=== PATIENT | female | born 1970 | race Caucasian/White ===

== ENCOUNTER 2020-08-22 08:21 | Outpatient (REF) | payer OTHER, SELFPAY ==
--- NOTE | 2020-08-22 | MM_ITS ---
EXAMINATION: MM SCREENING DIGITAL BREAST TOMOSYNTHESIS, BILATERAL CLINICAL INFORMATION: Screening. Asymptomatic. Prior benign right ultrasound-guided breast biopsy 2016. Family history breast cancer. The lifetime risk of breast cancer based on the Tyrer-Cuzick Model is 9%. COMPARISON: Mammography: 08/17/2019, 08/16/2018; MRI breasts 04/16/2019 TECHNIQUE: Digital breast tomosynthesis is performed in both the craniocaudal and mediolateral oblique views along with computer-aided detection (CAD). Synthesized 2D images are generated from the tomosynthesis. FINDINGS: There are scattered areas of fibroglandular density (ACR BI-RADS breast composition Category b). There are no significant masses, abnormal calcifications, or other abnormalities. There is a biopsy clip marker again noted anterior to mid 3:00 right breast. The axilla and skin contours are unremarkable. No significant changes. IMPRESSION: No mammographic evidence of malignancy. ASSESSMENT: BI-RADS 1: Negative RECOMMENDATION: Routine annual mammography screening. This patient's information was entered into a reminder system with a target due date for their next mammogram.
== END 2020-08-22 08:22 | disposition home or self-care (01) ==
LOC: HO.MAMMO 08:21
PROVIDERS: PCP Internal Medicine Medical Oncology; Visit Provider Internal Medicine Medical Oncology
DX: Z12.31 Encounter for screening mammogram for malignant neoplasm of breast (principal)
CPT/HCPCS: 77063; 77067; 78014

== ENCOUNTER → 2020-10-07 16:04 | Outpatient (BNVA) | payer OTHER, SELFPAY | PROVIDERS: PCP Internal Medicine Medical Oncology; Visit Provider Surgery | DX: Z76.89 Persons encountering health services in other specified circumstances (principal) ==

== ENCOUNTER → 2021-03-31 15:18 | Outpatient (BNVA) | payer OTHER, SELFPAY | PROVIDERS: PCP Internal Medicine Medical Oncology; Visit Provider Surgery ==

== ENCOUNTER 2021-08-24 07:30 | Outpatient (REF) | payer OTHER, SELFPAY ==
--- NOTE | ~2021-08-24 | MM_ITS ---
EXAMINATION: MM SCREENING DIGITAL BREAST TOMOSYNTHESIS, BILATERAL CLINICAL INFORMATION: Screening. Asymptomatic. Family history breast cancer, mother. The lifetime risk of breast cancer based on the Tyrer-Cuzick Model is 22%. COMPARISON: Mammography: 08/22/2020, 08/17/2019, 08/16/2018 TECHNIQUE: Digital breast tomosynthesis is performed in both the craniocaudal and mediolateral oblique views along with computer-aided detection (CAD). Synthesized 2D images are generated from the tomosynthesis. Additional right MLO view is provided. FINDINGS: There are scattered areas of fibroglandular density (ACR BI-RADS breast composition Category b). There are no significant masses, abnormal calcifications, or other abnormalities. Parenchymal pattern is similar to prior exams. No developing density. There is a biopsy clip marker again noted medial right breast for the axilla and skin contours are unremarkable. MM/MM tomosynthesis screening BI IMPRESSION: No mammographic evidence of malignancy. ASSESSMENT: BI-RADS 1: Negative RECOMMENDATION: Routine annual mammography screening. This patient's information was entered into a reminder system with a target due date for their next mammogram.
== END 2021-08-24 07:31 | disposition home or self-care (01) ==
LOC: HO.MAMMO 07:30
PROVIDERS: Absent Provider Obstetrics & Gynecology Gynecology; PCP Internal Medicine Medical Oncology; Visit Provider Surgery
DX: Z12.31 Encounter for screening mammogram for malignant neoplasm of breast (principal)
CPT/HCPCS: 77063; 77067

== ENCOUNTER → 2021-09-29 15:36 | Outpatient (BNVA) | payer OTHER, SELFPAY | PROVIDERS: PCP Internal Medicine Medical Oncology; Visit Provider Surgery ==

== ENCOUNTER → 2021-10-19 09:19 | Outpatient (BNVA) | payer OTHER, SELFPAY | PROVIDERS: PCP Internal Medicine Medical Oncology; Visit Provider Surgery ==

== ENCOUNTER → 2021-10-26 08:41 | Outpatient (BNVA) | payer OTHER, SELFPAY | PROVIDERS: Visit Provider Surgery ==

== ENCOUNTER → 2021-12-15 15:47 | Outpatient (BNVA) | payer OTHER, SELFPAY | PROVIDERS: Visit Provider Surgery ==

== ENCOUNTER 2022-02-15 08:05 | Outpatient (REF) | payer OTHER, SELFPAY ==
--- NOTE | ~2022-02-15 | MR_ITS ---
EXAMINATION: MR BREAST WITHOUT AND WITH CONTRAST, BILATERAL CLINICAL INFORMATION: 51-year-old for high-risk screening family history mother COMPARISON: MRI 04/16/2019 and correlation to mammogram of 08/24/2021 TECHNIQUE: Imaging was performed with a dedicated breast coil. Prior to the administration of contrast, bilateral axial T1 and bilateral axial T2 weighted sequences were obtained. After the uneventful administration of?7.5 mL of Gadavist, dynamic contrast-enhanced VIBRANT series through the breasts in the axial plane were performed. Subtracted images were performed and reviewed. A delayed sagittal sequence through both breasts was acquired. Additionally, CAD post-processing, including maximum intensity projections, 3-D reconstructions and kinetic analysis, were performed an independent workstation and reviewed by the interpreting radiologist is a portion of this exam. FINDINGS: The patient's fibroglandular tissue demonstrates minimal background enhancement. LEFT BREAST: No suspicious masslike or non-masslike enhancement. No abnormal skin thickening or nipple retraction. No abnormal architectural distortion. Review of the T2 weighted images demonstrates no fibrocystic changes or dilated ducts. Review of kinetic images reveals no additional findings. RIGHT BREAST: No suspicious masslike or non-masslike enhancement. No abnormal skin thickening or nipple retraction. No abnormal architectural distortion. Review of the T2 weighted images demonstrates no fibrocystic changes or dilated ducts. Review of kinetic images reveals no additional findings. There is no suspicious internal mammary chain or axillary adenopathy. Limited views of the chest and abdomen are unremarkable. MR/MR breast BI wo/w con IMPRESSION: No MR specific evidence of malignancy. ASSESSMENT: LEFT BREAST: BI-RADS 1-Negative RIGHT BREAST: BI-RADS 1-Negative RECOMMENDATIONS: Routine mammographic imaging as per most recent study and MRI as per high-risk protocol.
== END 2022-02-15 08:06 | disposition home or self-care (01) ==
LOC: HO.MRI 08:05
PROVIDERS: PCP Internal Medicine Medical Oncology; Visit Provider Surgery
DX: Z80.3 Family history of malignant neoplasm of breast (principal)
CPT/HCPCS: 77049; A9585

== ENCOUNTER 2022-09-13 08:19 | Outpatient (REF) | payer OTHER, SELFPAY ==
--- NOTE | ~2022-09-13 | MM_ITS ---
EXAMINATION: MM SCREENING DIGITAL BREAST TOMOSYNTHESIS, BILATERAL CLINICAL INFORMATION: Screening. Asymptomatic. Family history breast cancer, mother. The lifetime risk of breast cancer based on the Tyrer-Cuzick Model is 9%. COMPARISON: Mammography: 08/24/2021, 08/22/2020, 08/17/2019; bilateral breast MR 02/15/2022. TECHNIQUE: Digital breast tomosynthesis is performed in both the craniocaudal and mediolateral oblique views along with computer-aided detection (CAD). Synthesized 2D images are generated from the tomosynthesis. FINDINGS: There are scattered areas of fibroglandular density (ACR BI-RADS breast composition Category b). There are no significant masses, abnormal calcifications, or other abnormalities. Parenchymal pattern is similar to prior studies. There is no developing density or architectural abnormality. There is a biopsy clip marker anterior upper inner right breast again noted. The axilla and skin contours are unremarkable. No significant changes. MM/MM tomosynthesis screening BI IMPRESSION: No mammographic evidence of malignancy. ASSESSMENT: BI-RADS 1: Negative RECOMMENDATION: Routine annual mammography screening. This patient's information was entered into a reminder system with a target due date for their next mammogram.
== END 2022-09-13 08:20 | disposition home or self-care (01) ==
LOC: HO.MAMMO 08:19
PROVIDERS: PCP Internal Medicine Medical Oncology; Visit Provider Obstetrics & Gynecology Gynecology
DX: Z12.31 Encounter for screening mammogram for malignant neoplasm of breast (principal)
CPT/HCPCS: 77063; 77067

== ENCOUNTER → 2023-09-19 08:30 | Outpatient (BNV) | payer OTHER, SELFPAY | PROVIDERS: PCP Internal Medicine Medical Oncology; Visit Provider Radiology Diagnostic Radiology | DX: Z12.31 Encounter for screening mammogram for malignant neoplasm of breast (principal) | CPT/HCPCS: 77063; 77067 ==

== ENCOUNTER 2023-09-19 08:39 | Outpatient (REF) | payer OTHER, SELFPAY ==
--- NOTE | ~2023-09-19 | MM_ITS ---
EXAMINATION: MM SCREENING DIGITAL BREAST TOMOSYNTHESIS, BILATERAL CLINICAL INFORMATION: Screening. Asymptomatic. COMPARISON: Mammography: This study is compared with prior exams dating back to 2018. TECHNIQUE: Digital breast tomosynthesis is performed in both the craniocaudal and mediolateral oblique views along with computer-aided detection (CAD). Synthesized 2D images are generated from the tomosynthesis. FINDINGS: There are scattered areas of fibroglandular density (ACR BI-RADS breast composition Category b). There are no significant masses, abnormal calcifications, or other abnormalities. There is a tissue marker present in the upper inner quadrant of the right breast from prior benign percutaneous biopsy. MM/MM tomosynthesis screening BI IMPRESSION: No mammographic evidence of malignancy. ASSESSMENT: BI-RADS BI-RADS 2 - Benign Findings RECOMMENDATION: Routine annual mammography screening. 1 year F/U This examination should not preclude the clinical evaluation of a suspicious palpable abnormality. This patient's information was entered into a reminder system with a target due date for their next mammogram.
== END 2023-09-19 08:40 | disposition home or self-care (01) ==
LOC: HO.MAMMO 08:39
PROVIDERS: PCP Internal Medicine Medical Oncology; Visit Provider Internal Medicine Medical Oncology
DX: Z12.31 Encounter for screening mammogram for malignant neoplasm of breast (principal)
CPT/HCPCS: 77063; 77067

== ENCOUNTER 2023-09-27 15:28 | Outpatient (AMB) | payer OTHER, SELFPAY ==
--- NOTE | 2023-09-27 15:38 | A.OFFVIS_ITS ---
Intake Vital Signs 09/27/23 15:46 Height 5 ft 3 in Weight 169 lb BMI 29.9 BP 124/66 Intake Visit Reasons: Yearly Breast Exam Intake Note: Patient is seen in office for yearly breast exam. 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 Jones, determined to be high risk for breast cancer due to her strong family history for both breast and ovarian cancer. Her mother developed ovarian cancer in her early 50s and 2 maternal aunts also developed ovarian cancer in the 50s and 60s. The 2 aunts also developed breast cancer, also in their 50s and 60s. Her mother and 2 aunts have subsequently . The patient's sister was found to have pancreatic cancer at the age of 46 and subsequently underwent surgery. She is alive and well currently. Patient's father developed a kidney cancer at the age of 49. Patient is 3 para 1, with 2 miscarriages. Her son was born when she was 18 years old and she reports breast-feeding. Menarche was at the age of 12. Her last menstrual period was May,, and she reports her menstrual cycles are irregular. She denies Ashkenazi Protestant heritage, tobacco use but does report radiation exposure from [place]. She grew up in [place] and lived near the nuclear fall out of [place], as were her family members with cancer. The genetic testing revealed no clinically significant genetic mutations and 1 variant of unknown significance. Her breast cancer risk score was low at 5.4%, well below the 20% threshold. She denies any new breast symptoms. Her last mammogram was performed on 09/19/2023 however radiology report is not available at the time of this dictation. [facility] Medical History Family history of ovarian cancer Family history of breast cancer Surgical History History of right oophorectomy History of appendectomy Family History Maternal Aunt Breast cancer Ovarian cancer Maternal Aunt Breast cancer Sister Pancreatic cancer Father Cancer of kidney Mother Ovarian cancer Social History Alcohol intake: current Alcohol intake frequency: holidays/special occasions only Alcohol type: wine Review of Systems Const All systems reviewed & are unremarkable except as noted in HPI and below Denies chills, Denies fatigue, Denies poor appetite and Denies weakness Resp Denies chest congestion, Denies cough and Denies hemoptysis Denies nipple discharge Skin/Breast Denies breast swelling, Denies breast skin changes, Denies breast pain, Denies breast mass and Denies nipple discharge Neuro Denies weakness Endo Denies fatigue Adolph/Lymph Denies lymphadenopathy Physical Exam Vital Signs: Last Vital Signs BP 124/66 09/27/23 15:46 BMI result Body Mass Index 29.9 Const General: healthy appearing and Physically active Nutritional Appearance: well nourished Orientation/consciousness: patient oriented x3 Limitations: no limitations Neck Neck: Yes no lymphadenopathy Lymphatic: no lymphadenopathy noted Chest Other: Left breast: No skin change, no nipple retraction, no nipple discharge, no palpable mass, no enlarged lymph nodes. Right breast: No skin change, no nipple retraction, no nipple discharge, no palpable mass, no enlarged lymph nodes Resp Effort & Inspection: normal respiratory effort, no audible wheezes, no cough and no respiratory distress Skin General skin exam: no rashes or lesions noted Neuro General: patient oriented x3 Extrem General: Yes no clubbing, cyanosis or edema Psych Appearance: grossly normal Affect: normal affect Thought process: Normal thought process present Assessment & Plan Assessment & Plan (1) Family history of breast cancer: Code(s): Z80.3 - Family history of malignant neoplasm of breast Plan: Patient returns today for a follow-up breast examination. Previous genetic testing revealed no clinically significant genetic mutations and 1 variant of unknown significance identified. Her breast cancer risk score was calculated below the 20% threshold. Examination today revealed no suspicious findings in either breast. I recommended continue yearly breast examination and yearly screening mammograms. Will hold off on further breast MRIs. She expressed understanding and agrees with the plan. Will await for reading on her most recent mammogram dated 09/19/2023. Coding Level of Care Code Est Pt Level 3 (56857) Diagnoses Family history of breast cancer Z80.3
[2023-09-27 15:46] VITALS: BP 124/66; BMI 29.9
== END 2023-09-27 16:05 | disposition home or self-care (01) ==
PROVIDERS: PCP Internal Medicine Medical Oncology; Visit Provider Surgery
DX: Z80.3 Family history of malignant neoplasm of breast (principal)
CPT/HCPCS: 99213

== ENCOUNTER → 2023-09-27 15:28 | Outpatient (BNVA) | payer OTHER, SELFPAY | PROVIDERS: PCP Internal Medicine Medical Oncology; Visit Provider Surgery ==

== ENCOUNTER 2024-01-04 16:49 | Outpatient (REF) | payer OTHER, SELFPAY ==
--- NOTE | ~2024-01-04 | XR_ITS ---
EXAMINATION: XR BILATERAL HIPS WITH AP PELVIS CLINICAL INFORMATION: Pain. COMPARISON: None available. TECHNIQUE: AP view of the pelvis and single views of each hip were obtained. FINDINGS: No fracture. Hip joint spaces are maintained. Alignment is anatomic. Sacroiliac joints and pubic symphysis are normal. No abnormal soft tissue calcifications. There are small pelvic phleboliths. XR/XR hips ANDREA min 3V IMPRESSION: Normal pelvis and hips.
== END 2024-01-04 16:50 | disposition home or self-care (01) ==
LOC: HO.XRAY 16:49
PROVIDERS: PCP Internal Medicine Medical Oncology; Visit Provider Internal Medicine Medical Oncology
DX: M25.552 Pain in left hip (principal); M25.551 Pain in right hip
CPT/HCPCS: 73522

== ENCOUNTER 2024-01-13 16:48 | Outpatient (REF) | payer OTHER, SELFPAY ==
--- NOTE | ~2024-01-13 | XR_ITS ---
EXAMINATION: XR HAND/WRIST, RIGHT CLINICAL INFORMATION: Pain in a patient with carpal tunnel syndrome COMPARISON: None TECHNIQUE: PA, lateral, and oblique views of the right hand and wrist. FINDINGS: The bones and soft tissues are normal. No fracture. Alignment is anatomic. Joint spaces are maintained. No erosions or soft tissue calcifications. XR/XR hand wrist RT IMPRESSION: Normal radiographs of the hand and wrist.
--- NOTE | ~2024-01-13 | XR_ITS ---
EXAMINATION: XR HAND/WRIST, LEFT CLINICAL INFORMATION: Pain in the patient with carpal tunnel syndrome COMPARISON: None TECHNIQUE: PA, lateral, and oblique views of the left hand and wrist. FINDINGS: The bones and soft tissues are normal. No fracture. Alignment is anatomic. Joint spaces are maintained. No erosions or soft tissue calcifications. XR/XR hand wrist LT IMPRESSION: Normal radiographs of the hand and wrist.
== END 2024-01-13 16:49 | disposition home or self-care (01) ==
LOC: HO.XRAY 16:48
PROVIDERS: PCP Internal Medicine Medical Oncology; Visit Provider Internal Medicine Medical Oncology
DX: G56.03 Carpal tunnel syndrome, bilateral upper limbs (principal)
CPT/HCPCS: 73110; 73130

== ENCOUNTER 2024-02-02 08:07 | Outpatient (REF) | payer OTHER, SELFPAY ==
--- NOTE | 2024-02-02 08:10 | EMG_ITS ---
Bilateral median and ulnar motor and sensory studies were performed. Bilateral radial sensory studies were performed. Median and lateral antecubital brachial sensory studies were performed and paraspinal muscles were tested with a needle. IMPRESSION: 1. [id number] bilateral median neuropathy across carpal tunnel. 2. Mild bilateral ulnar neuropathy across cubital tunnel. MD SCOTT Mcfadden/LOLA / [phone]
== END 2024-02-02 08:08 | disposition home or self-care (01) ==
LOC: HO.NEURO 08:07
PROVIDERS: PCP Internal Medicine Medical Oncology; Visit Provider Internal Medicine Medical Oncology
DX: G56.03 Carpal tunnel syndrome, bilateral upper limbs (principal)
CPT/HCPCS: 95886; 95913

== ENCOUNTER 2024-02-13 08:48 | Outpatient (AMB) | payer OTHER, SELFPAY ==
--- NOTE | 2024-02-13 08:54 | A.OFFVIS_ITS ---
Intake Intake Visit Reasons: New Pt - Bilateral Hip Pain Intake Note: Pt is a 53 year old femal who presents to the office today for a new patient visit for bilateral hip pain. Pt states her right hip is worse than the left. She states this started in October 2023. Pt denies any known injury. Pt states she is unable to sleep on her right side. She states she has shooting pain that goes down her leg. Allergies No Known Allergies Allergy (Verified 02/13/24 08:55) HPI New Pt - Bilateral Hip Pain HPI Details 53-year-old female who presents to the [facility] today for evaluation of bilateral hip pain since October 2023. She states she has pain in her bilateral hips which is worse on her right hip. She rates the pain as 9 on the scale of 0- 10. She describes her pain as a shooting pain which radiates down to her leg. Her pain is aggravated at night which makes her unable to sleep on her right side. She also experiences muscle soreness at night. She denies any numbness or tingling. She has not had any previous injury. She has a history of right hip pain in 2014 and had attended physical therapy sessions for the same. 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 [facility] Medical History Family history of ovarian cancer Family history of breast cancer Surgical History History of right oophorectomy History of appendectomy Family History Maternal Aunt Breast cancer Ovarian cancer Maternal Aunt Breast cancer Sister Pancreatic cancer Father Cancer of kidney Mother Ovarian cancer Social History (Updated 02/13/24 @ 08:55 by Kely Cheng CMA) Alcohol intake: current Alcohol intake frequency: holidays/special occasions only Alcohol type: wine Patient Tobacco Use Status: Never used Tobacco Review of Systems Const All systems reviewed & are unremarkable except as noted in HPI and below Physical Exam Const General: cooperative, healthy appearing, comfortable, no acute distress, well developed and alert Orientation/consciousness: patient oriented x3 HEENT Head: Yes normal to inspection, Yes normocephalic and Yes atraumatic Eyes General: appearance normal, both eyes and all related structures Resp Effort & Inspection: normal respiratory effort and able to speak in complete sentences Cardio Rate: regular rate Peripheral pulses: Peripheral pulses 2+ throughout GI Palpation (GI): Soft to palpation Skin Lesions: no lesions Rashes: no rashes Neuro General: patient oriented x3 Extrem Other: Bilateral hip: Normal to inspection. No pain with ROM of the hip. Pain along the greater trochanter. No pain with hip flexion or abduction. Negative tenderness along the SI joint, Negative SLR. NVI. Results Reviewed Results Reviewed: xrays of the right hip obtained on 01/04/24 show mild acetabular sclerosis Assessment & Plan Assessment & Plan (1) Trochanteric bursitis of right hip: Code(s): M70.61 - Trochanteric bursitis, right hip Plan We discussed options which include PT, NSAIDs and injections. The patient will defer on the injection today and proceed with PT and NSAIDs. If symptoms persist, the patient will contact me for an injection, otherwise, PRN. Orders: Orders PT Evaluation and Treatment 02/13/24 M70.61 - Trochanteric bursitis, right hip Medications: New ibuprofen 800 mg PO Q8H PRN 90 tabs 3RF pain 30 days S52.209D - Unspecified fracture of shaft of unspecified ulna, subsequent encounter for closed fracture with routine healing diclofenac sodium 1% apply 4grams to affected area four times a day as needed 4 grams topical QID 100 grams 6RF 30 days Patient Instructions: Scribed for Sheila Walters PA-C, by Fransisco Colón medical field representative, on 02/13/2024 at 9:00 AM EST. I, Sheila Walters PA-C, have personally reviewed and agree with the information entered by the scribe. Coding Level of Care Code New Pt Level 3 (69335) Diagnoses Trochanteric bursitis of right hip M70.61
== END 2024-02-13 10:11 | disposition home or self-care (01) ==
PROVIDERS: PCP Internal Medicine Medical Oncology; Visit Provider Physician Assistant
DX: M70.61 Trochanteric bursitis, right hip (principal)
CPT/HCPCS: 99203

== ENCOUNTER → 2024-02-13 08:48 | Outpatient (BNVA) | payer OTHER, SELFPAY | PROVIDERS: PCP Internal Medicine Medical Oncology; Visit Provider Physician Assistant ==

== ENCOUNTER 2024-02-22 13:49 | Outpatient (AMB) | payer OTHER, SELFPAY ==
--- NOTE | 2024-02-22 14:09 | A.OFFVIS_ITS ---
Intake Intake Visit Reasons: NProb-B/L hand CTS pain Intake Note: Clair 53 yr old right hand dominant female presents today for a new problem visit for bilateral hand CTS. States her numbness is worse. Symptoms started about about a year ago and has not improved. Patient expresses that the hands are equal to pain/numbness. She has tried ibuprofen with no help. EMG done. Allergies No Known Allergies Allergy (Verified 02/22/24 14:10) HPI NProb-B/L hand CTS pain HPI Details Clair is a 53 year old right hand dominant woman who presents for a NCS of her bilateral hand numbness. She complains of numbness in all fingers of her hands bilaterally. Symptoms intermittent, but daily, worse at night. She says right now she has a slight tingling in her small fingers, more so the left small finger and she has not sure about the right small finger She is hesitant to discuss surgery today. 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 [facility], [facility]1983 Medical History Family history of ovarian cancer Family history of breast cancer Surgical History History of right oophorectomy History of appendectomy Family History Maternal Aunt Breast cancer Ovarian cancer Maternal Aunt Breast cancer Sister Pancreatic cancer Father Cancer of kidney Mother Ovarian cancer Social History (Updated 02/13/24 @ 08:55 by Kely Cheng CMA) Alcohol intake: current Alcohol intake frequency: holidays/special occasions only Alcohol type: wine Patient Tobacco Use Status: Never used Tobacco Review of Systems Const All systems reviewed & are unremarkable except as noted in HPI and below Physical Exam Const General: cooperative, healthy appearing and no acute distress Orientation/consciousness: patient oriented x3 HEENT Head: Yes normocephalic and Yes atraumatic Eyes EOM: EOMs intact bilaterally Resp Effort & Inspection: normal respiratory effort and able to speak in complete sentences Cardio Jugular venous distension: no JVD Skin General skin exam: turgor normal Rashes: no rashes Neuro General: patient oriented x3 Extrem Other: Evaluation of Bilateral Upper Extremity: The patient is alert, oriented, and in no acute distress Neuro: Median, Ulnar, Radial nerves motor and sensory intact and sensation is normal to the tips of all digits today in clinic No thenar or intrinsic wasting Good APB muscle belly firing and good finger cross Vascular: Cap refill brisk ROM: She can make a fist and extend all her digits No locking or catching Radiographs: 3 views of the bilateral hands & wrists from 01/13/24 were reviewed by me today in clinic. They show no fractures, dislocations, or appreciable arthritic signs bilaterally Nerve conduction study: IMPRESSION: 1. Ujjz-ma-mcebjsyt bilateral median neuropathy across carpal tunnel. 2. Mild bilateral ulnar neuropathy across cubital tunnel. Rigo Cruz MD 02/02/2024 Psych Appearance: grossly normal Affect: normal affect Attitude: cooperative Assessment & Plan Assessment & Plan (1) Carpal tunnel syndrome of right wrist: Code(s): G56.01 - Carpal tunnel syndrome, right upper limb (2) Carpal tunnel syndrome of left wrist: Code(s): G56.02 - Carpal tunnel syndrome, left upper limb (3) Cubital tunnel syndrome on right: Code(s): G56.21 - Lesion of ulnar nerve, right upper limb (4) Cubital tunnel syndrome on left: Code(s): G56.22 - Lesion of ulnar nerve, left upper limb Plan Assessment & Plan: 1. Left Carpal tunnel syndrome, mild-moderate Symptoms intermittent, but daily, worse at night 2. Left Cubital tunnel syndrome, mild Symptoms intermittent, but daily, worse at night I educated her about this condition I discussed operative and non-operative treatment options The patient would like to proceed with surgery, beginning with the left side The risks and benefits of operative treatment were discussed with the patient and the patient wishes to proceed with surgery. These risks include, but are not limited to risk of damage to blood vessels, nerves, tendons, infection, recurrence, incomplete relief of preoperative symptoms, persistent pain, possible need for further surgery and the risks associated with regional blocks and anesthesia. The plan is to take the patient to the operating room sometime in the next few weeks for the following procedures: 1. Left Cubital tunnel release vs transposition, under general 2. Left Carpal tunnel release, under general All of the preoperative paperwork including the consent was reviewed today. All the patient's questions were answered. The patient understands that they will be contacted by our rn surgery icu soon to schedule this procedure She denies Diabetes, blood thinners, asthma, heart, lung, kidney issues 3.Right Carpal tunnel syndrome, mild-moderate Symptoms intermittent, but daily, worse at night 4. Right Cubital tunnel syndrome, mild Symptoms intermittent, but daily, worse at night She will follow up to discuss treatment for this when her left side has recovered from surgery She will try and be mindful if her small finger does go numb daily on this side Scribed for Chrissy Bowser MD by Jonathan Rider medical chemist, on 02/22/24 at 2:15 PM, EST. Coding Level of Care Code New Pt Level 4 (15350) Diagnoses Carpal tunnel syndrome of right wrist G56.01 Carpal tunnel syndrome of left wrist G56.02 Cubital tunnel syndrome on right G56.21 Cubital tunnel syndrome on left G56.22
== END 2024-02-22 14:38 | disposition home or self-care (01) ==
PROVIDERS: PCP Internal Medicine Medical Oncology; Visit Provider Orthopaedic Surgery
DX: G56.03 Carpal tunnel syndrome, bilateral upper limbs (principal); G56.23 Lesion of ulnar nerve, bilateral upper limbs
CPT/HCPCS: 99204

== ENCOUNTER → 2024-02-22 13:49 | Outpatient (BNVA) | payer OTHER, SELFPAY | PROVIDERS: PCP Internal Medicine Medical Oncology; Visit Provider Orthopaedic Surgery ==

== ENCOUNTER 2024-02-27 09:34 | Emergency (ER) | payer OTHER, SELFPAY ==
--- NOTE | ~2024-02-27 | CT_ITS ---
EXAMINATION: CT HEAD WITHOUT CONTRAST CLINICAL INFORMATION: Left facial numbness. COMPARISON: None available. TECHNIQUE: Contiguous axial imaging was performed from the skull base to vertex without intravenous administration of contrast. This CT examination was performed using dose optimization techniques as appropriate, variously including the following: *Automated exposure control *Adjustment of mA and/or kV according to patient size (this includes techniques or standardized protocols for targeted exams where dose is matched to indication/reason for exam; i.e. extremities or head) *Use of iterative reconstruction technique DLP: 577 mGy-cm FINDINGS: There is no intracranial hemorrhage. There is no evidence of acute/subacute cerebral or cerebellar infarction. There is no midline shift, mass effect, or extra-axial fluid collection. The ventricles are normal in size. The orbits are symmetric and within normal limits. Visualized mastoid air cells are clear. Visualized paranasal sinuses are well aerated. CT/CT head/brain wo IV con IMPRESSION: No acute intracranial pathology.
[2024-02-27 09:38] VITALS: BP 169/96; PULSE 79; RESP 18; TEMP 36.8; O2SAT 98; BMI 29.7
[2024-02-27 10:00] LABS: MANUAL DIFF FLAG NO
[2024-02-27 10:02] LABS: Basophils Absolute Auto 0.1 X10*3/uL (0.0-0.2); Basophils Percent Auto 0.9 % (0-2); Eosinophils Absolute Auto 0.3 X10*3/uL (0.0-0.4); Eosinophils Percent Auto 5.5 % (0-4); Hematocrit 40.5 % (37.0-47.0); Hemoglobin 13.7 g/dl (12.0-16.0); Imm Gran Abs Auto 0.01 X10*3/uL (0.00-0.03); Imm Gran Pct Auto 0.2 % (0.0-0.4); Lymphocytes Absolute Auto 1.6 X10*3/uL (1.2-4.9); Lymphocytes Percent Auto 29.2 % (20-40); Mean Corpuscular HGB Conc 33.8 g/dl (31.0-35.0); Mean Corpuscular Hemoglobin 30.7 pg (27.0-33.0); Mean Corpuscular Volume 90.8 fL (80.0-98.0); Mean Platelet Volume 10.3 fL (9.4-12.3); Monocytes Absolute Auto 0.4 X10*3/uL (0.1-1.2); Monocytes Percent Auto 7.7 % (2-11); Neutrophils Absolute Auto 3.1 x10*3/uL (2.0-8.3); Neutrophils Percent Auto 56.5 % (45-73); Platelet Count 291 X10*3/uL (160-400); Red Blood Count 4.46 X10*6/uL (4.20-5.50); Red Cell Distribution Width 13.6 % (11.0-16.0); White Blood Count 5.5 X10*3/uL (4.8-10.8)
[2024-02-27 10:18] LABS: Anion Gap 13 (12-20); Blood Urea Nitrogen 7 mg/dL (9-16); Calcium 9.7 mg/dL (8.4-10.2); Carbon Dioxide 26 mmol/L (22-29); Chloride 107 mmol/L (96-108); Creatinine Clr Calc Pharmacy 87.3; Estimated Glomerular Filt Rate > 60; Glucose Random 97 mg/dL (60-115); Potassium 4.8 mmol/L (3.3-5.1); Sodium 141 mmol/L (135-145)
--- NOTE | 2024-02-27 10:21 | ED_ITS ---
HPI - Neuro Symptoms/Deficit General Chief Complaint: Neuro Symptoms/Deficit Stated Complaint: L side facial numbness sent by Enzo Time Seen by Provider: 02/27/24 10:20 Source: patient Mode of arrival: ambulatory Limitations: no limitations History of Present Illness HPI Narrative: 53 yo female with history of bilateral carpal tunnel syndrome, HTN, HLD who presents to the ER from Dr. Umanzor's office for evaluation of left facial numbness that started 4 days ago. She states it came on gradually and involves the left maxillary area and extends toward the ear. She states it feels like when the dentist uses novocaine. It waxes and wanes but has been mostly constant for the last 4 days. No associated weakness, tingling, difficulty speaking or concentrating. No ear pain, no dental pain. She is a nonsmoker. Onset (ago): day(s) (4) Location: left face History of same: No Severity: mild Quality: numb Relieving factors: none Exacerbating factors: none Context: gradual onset On Anticoagulants: No Associated symptoms: denies other symptoms Treatments Prior to Arrival: none Related Data Home Medications ?Medication ?Instructions ?Recorded ?Confirmed valacyclovir 1 gram tablet 4,000 mg PO ONCE 02/13/24 Previous Rx's ?Medication ?Instructions ?Recorded diclofenac sodium 1 % topical gel 4 g topical QID 30 days #100 grams 02/13/24 ibuprofen 800 mg tablet 800 mg PO Q8H PRN pain 30 days #90 02/13/24 tabs Allergies Allergy/AdvReac Type Severity Reaction Status Date / Time No Known Allergies Allergy Verified 02/27/24 09:39 Review of Systems 2 Review of Systems: Yes all other systems are reviewed and are negative [facility] Past Medical History Medical History Family history of ovarian cancer Family history of breast cancer Surgical History History of right oophorectomy History of appendectomy Family History Family History Maternal Aunt Breast cancer Ovarian cancer Maternal Aunt Breast cancer Sister Pancreatic cancer Father Cancer of kidney Mother Ovarian cancer Social History Social History (Updated 02/13/24 @ 08:55 by Kely Cheng CMA) Alcohol intake: current Alcohol intake frequency: holidays/special occasions only Alcohol type: wine Patient Tobacco Use Status: Never used Tobacco Advance Directives: No Advance Directives Information Provided: Yes Physical Exam 2 Vital Signs: Vital Signs: Last Vital Signs Temp 98.2 F 02/27/24 12:32 Pulse 74 02/27/24 12:32 Resp 16 02/27/24 12:32 BP 144/84 H 02/27/24 12:32 Pulse Ox 97 02/27/24 12:32 O2 Del Method Room Air 02/27/24 12:32 BMI result Body Mass Index 29.7 Appearance: Alert. Oriented X3. No acute distress. Head: normocephalic, atraumatic. Eyes: Pupils equal, round and reactive to light. EOMI. No nystagmus ENT: Pharynx normal. No tonsillar swelling or exudate. Neck: Normal inspection. Neck supple. CVS: Normal heart rate and rhythm. Pulses normal. Respiratory: No respiratory distress. Breath sounds normal. Abdomen: Soft and nontender. +BS x4 Skin: Skin warm and dry. Normal skin color. Normal skin turgor. No rashes. Extremities: No lower extremity edema. No joint swelling. Neuro/psych: Oriented X 3. No motor deficit. Subjective sensory deficit to left face/maxillary area feels different than the right face. CN II-XII intact. Normal speech and cognition. Steady gait. Equal heel to cabrera bilaterally and finger to nose bilaterally. Medical Decision Making Medical Decision Making MDM Narrative: 53 yo female presenting with 4 days of left facial numbness. she reports sensation is different in her left maxillary area. Neuro exam is normal, nonfocal. NIH 0. Lab workup unremarkable. CT head performed and was normal She reports wax/waning numbness, overall improved. case d/w Dr. Torres - added ESR. will plan to start on ASA 81. no need for emergent MRI today. will discharge home and have her follow up with her PCP. stable for d/c home. Dr. Umanzor aware Differential Diagnosis Differential Diagnoses: The differential diagnosis associated with the presentation includes CVA, vasculitis, dissection, electrolyte abnormality,MS, panic attack, Addison's palsy, neuropathy, trigeminal neuralgia Admission/Observation Consideration of admission/observation: Escalation of care including admission/observation considered Consult Healthcare Provider Management of the patient was discussed with: Clam Bed Worker PCP Dr. Umanzor - tigertexted and made him aware of results and plan to d/c home Lab Data MDM Lab Attestation statement: I reviewed the patient's lab results. 02/27/24 09:55 02/27/24 09:55 Labs: Lab Results 02/27/24 Range/Units 09:55 WBC 5.5 (4.8-10.8) X10*3/uL RBC 4.46 (4.20-5.50) X10*6/uL Hgb 13.7 (12.0-16.0) g/dl Hct 40.5 (37.0-47.0) % MCV 90.8 (80.0-98.0) fL MCH 30.7 (27.0-33.0) pg MCHC 33.8 (31.0-35.0) g/dl RDW 13.6 (11.0-16.0) % Plt Count 291 (160-400) X10*3/uL MPV 10.3 (9.4-12.3) fL Immature Gran % (Auto) 0.2 (0.0-0.4) % Neut % (Auto) 56.5 (45-73) % Lymph % (Auto) 29.2 (20-40) % [place] % (Auto) 7.7 (2-11) % Eos % (Auto) 5.5 H (0-4) % Baso % (Auto) 0.9 (0-2) % Lymph # (Auto) 1.6 (1.2-4.9) X10*3/uL [place] # (Auto) 0.4 (0.1-1.2) X10*3/uL Eos # (Auto) 0.3 (0.0-0.4) X10*3/uL Baso # (Auto) 0.1 (0.0-0.2) X10*3/uL Abs Immat Gran (auto) 0.01 (0.00-0.03) X10*3/uL Absolute Neuts (auto) 3.1 (2.0-8.3) x10*3/uL Absolute Nucleated RBC 0.000 (0.0-0.012) X10*3/uL Nucleated RBC % (auto) 0.0 (0.0-0.2) /100WBC Sodium 141 (135-145) mmol/L Potassium 4.8 (3.3-5.1) mmol/L Chloride 107 (96-108) mmol/L Carbon Dioxide 26 (22-29) mmol/L Anion Gap 13 (12-20) BUN 7 L (9-16) mg/dL Creatinine 0.71 (0.5-1.4) mg/dL Estim Creat Clear Calc 87.3 Estimated GFR > 60 Random Glucose 97 (60-115) mg/dL Calcium 9.7 (8.4-10.2) mg/dL Magnesium 2.2 (1.6-2.6) mg/dL Independent Interpretation I performed an independent interpretation of an: CT Scan Interpretation: no edema or bleed, agree w/ radiology read Radiology Impression Discussion of test interpretation with radiology: I have reviewed the radiologist's reading. Radiologist Impression: EXAMINATION: CT HEAD WITHOUT CONTRAST CLINICAL INFORMATION: Left facial numbness. COMPARISON: None available. TECHNIQUE: Contiguous axial imaging was performed from the skull base to vertex without intravenous administration of contrast. This CT examination was performed using dose optimization techniques as appropriate, variously including the following: *Automated exposure control *Adjustment of mA and/or kV according to patient size (this includes techniques or standardized protocols for targeted exams where dose is matched to indication/reason for exam; i.e. extremities or head) *Use of iterative reconstruction technique DLP: 577 mGy-cm FINDINGS: There is no intracranial hemorrhage. There is no evidence of acute/subacute cerebral or cerebellar infarction. There is no midline shift, mass effect, or extra-axial fluid collection. The ventricles are normal in size. The orbits are symmetric and within normal limits. Visualized mastoid air cells are clear. Visualized paranasal sinuses are well aerated. CT/CT head/brain wo IV con IMPRESSION: No acute intracranial pathology. External Record Review External record reviewed: Outpatient record, Prior outpatient labs and Prior outpatient radiology Tests considered The following testing was considered but not selected: CTA head/neck considered but low clinical suspicion for LVO or dissection Prescription Management I considered prescription management with: Other (aspirin) Chronic Conditions Patient?s care impacted by: Hypertension NIH Stroke Scale Internal: Initial- Upon Arrival Level of Consciousness: Alert Level of Consciousness Questions: Answers both questions correctly Level of Consciousness Commands: Performs both tasks correctly Best Gaze: Normal Visual: No visual loss Facial Palsy: Normal Motor Arm (Right): No drift Motor Arm (Left): No drift Motor Leg (Right): No drift Motor Leg (Left): No drift Limb Ataxia: Absent Sensory: Normal Best Language: No aphasia Dysarthia: Normal Extinction and Inattention: No abnormality Score: 0 Critical Care Time Critical Care Time Critical Care Time: No Discharge Plan Discharge Clinical Impression: Left facial numbness Patient Disposition: Home, Self-Care Instructions: Paresthesia (ED) Additional Instructions: your CT scan today was normal Recommend starting a baby aspirin. Follow-up with your doctor for further evaluation and treatment If you develop new or worsening symptoms call 911 or come back to the ER for further evaluation. Prescriptions: No Action valacyclovir 1 gram tablet 4,000 mg PO ONCE diclofenac sodium 1 % gel 4 g topical QID 30 Days Qty: 100 6RF Rx Instructions: apply 4grams to affected area four times a day as needed ibuprofen 800 mg tablet 800 mg PO Q8H PRN (Reason: pain) 30 Days Qty: 90 3RF Print Language: Hebrew
[2024-02-27 12:32] VITALS: BP 144/84; PULSE 74; RESP 16; TEMP 36.8; O2SAT 97
[2024-02-27 13:04] LABS: Magnesium 2.2 mg/dL (1.6-2.6)
--- NOTE | 2024-02-27 13:25 | PC.NURSE ---
CT scan contacted re: reading- per arnold will send message to radiologist
[2024-02-27 14:26] LABS: Erythrocyte Sedimentation Rate 6 MM/HR (0-20)
[2024-02-27 15:57] VITALS: BP 140/80; PULSE 77; RESP 16; TEMP 36.8; O2SAT 98
== END 2024-02-27 13:30 | disposition home or self-care (01) ==
PROVIDERS: Physician Assistant; Emergency Provider Emergency Medicine; PCP Internal Medicine Medical Oncology
DX: R20.0 Anesthesia of skin (principal); I10 Essential (primary) hypertension
CPT/HCPCS: 36415; 70450; 80048; 83735; 85025; 85652; 99283; 99284

== ENCOUNTER 2024-03-27 15:25 | Outpatient (AMB) | payer OTHER, SELFPAY ==
--- NOTE | 2024-03-27 15:26 | A.OFFVIS_ITS ---
Vital Signs 03/27/24 15:33 Height 5 ft 3 in Weight 167 lb BMI 29.6 BP 155/84 H Blood Pressure Location Lt brachial Position Sitting Pulse 89 Intake Visit Reasons: 6m Breast Exam Intake Note: Patient is seen in office for 6 month follow up visit, breast exam. Pt c/o: denies any concerns regarding the breast Food Service Agent Required: No Turning Sander Tender: Turning Sander Tender Present Accompanied by: Self / Same As Patient Allergies pollen extracts Allergy (Mild, Verified 03/27/24 15:48) Nasal congestion Medication List - Last Reconciled 03/30/24 by Bong Mayo MD diclofenac sodium 1% 4 grams topical QID 30 days ibuprofen 800 mg PO Q8H PRN 30 days valacyclovir 4,000 mg PO ONCE HPI Comments Details: 53-year-old female patient, former patient of Dr. Eaton and hemanth Mendes etermined to be high risk for breast cancer due to her strong family history for both breast and ovarian cancer. Her mother developed ovarian cancer in her early 50s and 2 maternal aunts also developed ovarian cancer in the 50s and 60s. The 2 aunts also developed breast cancer, also in their 50s and 60s. Her mother and 2 aunts have subsequently . The patient's sister was found to have pancreatic cancer at the age of 46 and subsequently underwent surgery. She is alive and well currently. Patient's father developed a kidney cancer at the age of 49. Patient is 3 para 1, with 2 miscarriages. Her son was born when she was 18 years old and she reports breast-feeding. Menarche was at the age of 12. Her last menstrual period was May,, and she reports her menstrual cycles are irregular. She denies Ashkenazi Hoahaoism heritage, tobacco use but does report radiation exposure from [place]. She grew up in [facility] and lived near the nuclear fall out of [place], as were her family members with cancer. The genetic testing revealed no clinically significant genetic mutations and 1 variant of unknown significance. Her breast cancer risk score was low at 5.4%, well below the 20% threshold. She denies any new breast symptoms. Her last mammogram was performed on 09/19/2023 revealed no mammographic evidence of malignancy (BI-RADS 2). One year follow-up is re commended. [facility] Medical History Family history of ovarian cancer Family history of breast cancer Surgical History History of right oophorectomy History of appendectomy Family History Maternal Aunt Breast cancer Ovarian cancer Maternal Aunt Breast cancer Sister Pancreatic cancer Father Cancer of kidney Mother Ovarian cancer Social History Alcohol intake: current Alcohol intake frequency: holidays/special occasions only Alcohol type: wine Patient Tobacco Use Status: Never used Tobacco Review of Systems Const All systems reviewed & are unremarkable except as noted in HPI and below Denies chills, Denies fatigue, Denies poor appetite and Denies weakness Resp Denies chest congestion, Denies cough and Denies hemoptysis Denies nipple discharge Skin/Breast Denies breast swelling, Denies breast skin changes, Denies breast pain, Denies breast mass and Denies nipple discharge Neuro Denies weakness Endo Denies fatigue Adolph/Lymph Denies lymphadenopathy Physical Exam Vital Signs: Last Vital Signs Pulse 89 03/27/24 15:33 BP 155/84 H 03/27/24 15:33 BMI result Body Mass Index 29.6 Const General: healthy appearing and Physically active Nutritional Appearance: well nourished Orientation/consciousness: patient oriented x3 Limitations: no limitations Neck Neck: Yes no lymphadenopathy Lymphatic: no lymphadenopathy noted Chest Other: Left breast: No skin change, no nipple retraction, no nipple discharge, no palpable mass, no enlarged lymph nodes. Right breast: No skin change, no nipple retraction, no nipple discharge, no palpable mass, no enlarged lymph nodes Resp Effort & Inspection: normal respiratory effort, no audible wheezes, no cough and no respiratory distress Skin General skin exam: no rashes or lesions noted Neuro General: patient oriented x3 Extrem General: Yes no clubbing, cyanosis or edema Psych Appearance: grossly normal Affect: normal affect Thought process: Normal thought process present Assessment & Plan Assessment & Plan (1) Family history of breast cancer: Code(s): Z80.3 - Family history of malignant neoplasm of breast Category: Medical Plan: Patient returns today for a follow-up breast examination. Previous genetic testing revealed no clinically significant genetic mutations and 1 variant of unknown significance identified. Her breast cancer risk score was calculated below the 20% threshold. Examination today revealed no suspicious findings in either breast. I recommended continue yearly breast examination and yearly screening mammograms. Will hold off on further breast MRIs. She expressed understanding and agrees with the plan. She will be due for yearly mammogram in September 2024. Coding Level of Care Code Est Pt Level 3 (26104) Diagnoses Family history of breast cancer Z80.3
[2024-03-27 15:33] VITALS: BP 155/84; PULSE 89; BMI 29.6
== END 2024-03-27 15:51 | disposition home or self-care (01) ==
PROVIDERS: PCP Internal Medicine Medical Oncology; Visit Provider Surgery
DX: Z80.3 Family history of malignant neoplasm of breast (principal)
CPT/HCPCS: 99213

== ENCOUNTER → 2024-03-27 15:25 | Outpatient (BNVA) | payer OTHER, SELFPAY | PROVIDERS: PCP Internal Medicine Medical Oncology; Visit Provider Surgery ==

== ENCOUNTER 2024-03-27 17:00 | Outpatient (RCR) | payer OTHER, SELFPAY ==
--- NOTE | 2024-03-05 13:21 | MHC.PT.EP ---
[facility] Office [place] [facility] [place] [facility] [address] Esme Caraballo [address] [phone] F: [phone] F: [phone] F: [phone] F: [phone] Physical Therapy Plan of Care Date of Evaluation: 03/05/24 Date of Surgery: Diagnosis: TROCHANTERIC BURSITIS RIGHT HIP Assessment: 53 YO FEMALE REF TO PT FOR Rt TROCHANTERIC BURSITIS W ONSET OF PROGRESSIVE SXS IN 09/2023. SHE NOTES SHE ALSO HAD A BOUT OF PLANTAR FASCIITIS W (+) CALCANEAL SPUR IN 09/2023. 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 HER Rt HIP SXS ARE WORSE AT NIGHT, SHE HAS (+) LUMBOPELVIC ASYM, WEAKNESS IN GLUTES / ABDOM, (-) RADICULAR SXS, (+) SI Jt DYSFUNCTION, LIMITED FLEXIB IN HIP ROTATORS, AND Rt HIP PAIN W OCCAS GROIN SORENESS. SHE IS A GOOD CANDIDATE FOR SKILED PT-> SHE IS MOTIVATED FOR PT AND WOULD BENEFIT FROM DEV OF A HEP FOR SELF-SX MGMT , SOFT TISSUE EASING, IMPROVED LUMBOPELVIC STABILIZATION, AND INCR ISAC TO PROLONGED WORK SITE POSTURES. Frequency and Duration: The patient will be seen 2 x WK x 5 WKS Short Term Goals: *DECR Rt HIP PAIN TO 2-3/10 *INITIATE HEP TO IMPROVE LUMBOPELVIC SYMM/ EASE SI Jt ASYM *IMPROVE HIP FLEXIB ANDREA *WFL FUNCTIONAL SQUAT Felt Puller Goals: *Pt DEMON IMPROVED BODY MECH W SIMUL WORK SITE TASKS *Pt WILL IMPROVE LUMBOPELVIC/ Rt LE HIP STRENGTH TO AT LEAST 5-/5 *Pt INDEP W PROGRESSIVE HEP AND SELF-SX MGMT TECHN *Pt PERF WORK SITE TASKS/ REG ADLs / FITNESS WALKING , W IMPROVED LEFI SCORE (AT EVAL 70/80 ) Treatment Plan: Modalities to reduce pain, spasms and effusion. Manual therapy to restore motion and function. Therapeutic exercise to improve strength and flexibility. Neuromuscular re-education for posture and balance. Therapeutic activities to return to functional activities of daily living. Electronically signed by: REBEKAH JIMMY,PT Please sign and return to therapist. Thank you for your referral.
--- NOTE | 2024-07-13 12:24 | MHC.PT.DC ---
[facility] [place] Office [place] Office [place] Office [address] Esme Caraballo [address] [phone] F: [phone] F: [phone] F: [phone] F: [phone] Physical Therapy Discharge Report Diagnosis: TROCHANTERIC BURSITIS RIGHT HIP Date of Surgery: Date of Evaluation: 03/05/24 Date of Discharge: 07/13/24 Treatments to Date: 6 Cancellations to Date: 1 No Shows to Date: 2 Discharge Status: Improved Function Independent with HEP Patient Elected to Stop Discharge Summary: THE Pt WAS BENEFITTING FROM PT, SHE MET HER SHORT TERM GOALS AND MOST LTGs- A FORMAL REASSESSMENT WAS NOT PERF THE Pt DID NOT ATTEND LAST FEW TREATMENTS. SHE HAS A THOROUGH HEP FOR SYMPTOM MANAGEMENT. Electronically signed by: REBEKAH MARQUEZ,PT Please sign and return to therapist. Thank you for your referral.
== END 2024-07-13 12:26 | disposition home or self-care (01) ==
LOC: HO.PT 17:00
PROVIDERS: PCP Internal Medicine Medical Oncology; Visit Provider Physician Assistant
DX: M70.61 Trochanteric bursitis, right hip (principal)
CPT/HCPCS: 97014; 97110; 97140; 97162; 97530

== ENCOUNTER 2024-09-21 07:10 | Day surgery (SDC) | payer OTHER, SELFPAY ==
[2024-09-19 10:47] VITALS: BMI 29.8
[2024-09-21 07:22] VITALS: BMI 29.2
[2024-09-21 07:29] VITALS: BP 143/93; PULSE 75; RESP 15; TEMP 36.7; O2SAT 97
--- NOTE | 2024-09-21 07:40 | P.CONAN_ITS ---
Documented by User: Xochitl Padgett NP 09/20/24 10:12 HPI - Anesthesia Eval Consult details Narrative: 54yo F for Colonoscopy PMFSH Active Problems Active Problems: All Active Problems Cubital tunnel syndrome on left (Acute) Cubital tunnel syndrome on right (Acute) Carpal tunnel syndrome of left wrist (Acute) Carpal tunnel syndrome of right wrist (Acute) Trochanteric bursitis of right hip (Acute) Family history of breast cancer (Acute) Past Medical History Medical History (Updated 09/21/24 @ 07:51 by Gwen Patrick RN) Fatty liver HTN (hypertension) Hepatic cyst Uterine fibroid Hyperlipidemia Family History Family History Maternal Aunt Breast cancer Ovarian cancer Maternal Aunt Breast cancer Sister Pancreatic cancer Father Cancer of kidney Mother Ovarian cancer Surgical History Surgical History H/O colonoscopy History of right oophorectomy History of appendectomy Social History Social History (Updated 09/19/24 @ 10:46 by Diann Hall RN) Household Members: Spouse Alcohol intake: current Alcohol intake frequency: holidays/special occasions only Alcohol type: wine Patient Tobacco Use Status: Former Tobacco user Tobacco use type: Cigarette Use of substances other than those prescribed or required for medical reasons: No Are you DNR?: No Advance Directives: No Advance Directives Information Provided: Yes Recently lost weight without trying: No Meds Allergies Allergy/AdvReac Type Severity Reaction Status Date / Time pollen extracts Allergy Mild Nasal Verified 09/21/24 07:44 congestion Home Medications ?Medication ?Instructions ?Recorded ?Confirmed ?Last Taken ?Type valacyclovir 1 gram tablet 4,000 mg PO DAILY PRN Outbreak 02/13/24 09/21/24 Unknown History lisinopril 10 mg tablet 10 mg PO DAILY 09/21/24 09/21/24 Unknown History Exam Height,Weight and Vital Signs: Height 5 ft 3 in Weight 76.204 kg Assessment and Plan Assessment Anesthesia Assessment: Chart Reviewed Documented by User: Gwen Atkinson DO 09/21/24 07:53 [facility] Past Medical History Medical History (Updated 09/21/24 @ 07:51 by Gwen Patrick, RN) Fatty liver HTN (hypertension) Hepatic cyst Uterine fibroid Hyperlipidemia Family History Family History Maternal Aunt Breast cancer Ovarian cancer Maternal Aunt Breast cancer Sister Pancreatic cancer Father Cancer of kidney Mother Ovarian cancer Family history of problems with anesthesia: No Surgical History Surgical History H/O colonoscopy History of right oophorectomy History of appendectomy History of Problems with Anesthesia: No Social History Social History (Updated 09/19/24 @ 10:46 by Diann Hall RN) Household Members: Spouse Alcohol intake: current Alcohol intake frequency: holidays/special occasions only Alcohol type: wine Patient Tobacco Use Status: Former Tobacco user Tobacco use type: Cigarette Use of substances other than those prescribed or required for medical reasons: No Are you DNR?: No Advance Directives: No Advance Directives Information Provided: Yes Recently lost weight without trying: No Meds Allergies Allergy/AdvReac Type Severity Reaction Status Date / Time pollen extracts Allergy Mild Nasal Verified 09/21/24 07:44 congestion Home Medications ?Medication ?Instructions ?Recorded ?Confirmed ?Last Taken ?Type valacyclovir 1 gram tablet 4,000 mg PO DAILY PRN Outbreak 02/13/24 09/21/24 Unknown History lisinopril 10 mg tablet 10 mg PO DAILY 09/21/24 09/21/24 Unknown History Exam Exam Date and Time: 09/21/24 0740 Height,Weight and Vital Signs: Height 5 ft 3 in Weight 76.204 kg Vital Signs Temperature 98.0 F 09/21/24 07:29 Pulse Rate 75 09/21/24 07:29 Respiratory Rate 15 09/21/24 07:29 Blood Pressure 143/93 H 09/21/24 07:29 Pulse Oximetry 97 09/21/24 07:29 Oxygen Delivery Method Room Air 09/21/24 07:29 Temperature 98.0 F 09/21/24 07:29 Pulse Rate 75 09/21/24 07:29 Respiratory Rate 15 11/08/24 07:29 Blood Pressure 143/93 H 09/21/24 07:29 Pulse Oximetry 97 09/21/24 07:29 Oxygen Delivery Method Room Air 09/21/24 07:29 Airway Mallampati Class: II TM Dist: >3cm Neck ROM: Full Loose/Missing/Broken Teeth: No (patient denies any loose or broken teeth) Heart: S1S2 Lungs: CTAB Assessment and Plan Assessment Anesthesia Assessment: Anesthesia Plan Discussed and Chart Reviewed Final Anesthetic Review Family History of Problems with Anesthesia: No History of Problems with Anesthesia: No NPO: Yes ASA Class: II Final Preanesthetic Review: No Changes in Pt Med Stat, Meds/Allgs Chart Reviewed, Consent Obtained/Reviewed and Anes Risks/Benef Reviewed Patient Risk: Low Procedure Risk: Low Anesthetic Plan Anesthetic Plan: MAC: and Agree w/ Assess. and Plan Disposition: Standard PACU
[2024-09-21] MEDS: Lactated Ringers 1,000 ML 100 ML IVCONT (07:44)
--- NOTE | 2024-09-21 08:08 | MHC.SHP ---
Pre-Procedural Eval Section A - 24 Hr Update-Section A only Date of Service: 09/21/24 Section B - Complete if H&P > 30 days Chief Complaint: Encounter for screening for malignant neoplasm of Details of Present Illness: see H&P no changes Relevant Family History (Specify if Yes): No Relevant Social History: None Present Medications: see Short Stay Collaborative assessment Medical History: No relevant PMH History of Previous Operations: No relevant previous surgery Allergies: Allergies Allergy/AdvReac Type Severity Reaction Status Date / Time pollen extracts Allergy Mild Nasal Verified 09/21/24 07:44 congestion Review of Systems Sugical H&P ROS: Negative: Constitution, Cardiovascular, Respiratory, Neurological, Psychiatric, Hem-Onc, Allergic/Immunologic, Gastrointestinal, Genitourinary, Musculoskeletal, Integumentary, Endocrine and Eyes/Ears/Nose/Throat Exam Surgical H&P Exam: Normal: HEENT, Normal: Heart, Normal: Lungs, Normal: Extremities, Normal: Abdomen, Normal: Skin and Normal: Neurological Plan Diagnosis/Plan: Unchanged I have reviewed the history and physical and performed a pertinent physical examination on my patient. No changes have occurred unless specified. Time Spent With Patient Time: Total time managing care of this patient today ____ minutes.
[2024-09-21 08:36] VITALS: BP 83/47; PULSE 73; RESP 16; TEMP 36.4; O2SAT 95
[2024-09-21 08:51] VITALS: BP 105/68; PULSE 73; RESP 16; TEMP 36.1; O2SAT 97
--- NOTE | 2024-09-24 07:40 | PM.OP ---
Brief Operative Note Date of Service: 09/21/24 Pre-op diagnosis: screening Post-op diagnosis: same Procedure: colonoscopy Surgeon: Abiodun Villafana MD Anesthesia: MAC Was an Facility Maintenance Mechanic used for this Procedure?: No Estimated blood loss (mL): 2 Pathology: other Condition: stable Disposition: PACU
--- NOTE | 2024-09-24 08:01 | OP_ITS ---
DATE OF SERVICE: 09/21/2024 SURGEON: Abiodun Villafana MD INDICATIONS: Colon cancer screening. PREOPERATIVE DIAGNOSIS: POSTOPERATIVE DIAGNOSIS: PROCEDURE PERFORMED: Colonoscopy to the terminal ileum with biopsy. ESTIMATED BLOOD LOSS: COMPLICATIONS: ANESTHESIA: ASSISTANTS: SPECIMENS: MEDICATIONS: Monitored anesthesia care. DESCRIPTION OF PROCEDURE: A history and physical performed. The risks and benefits of the procedure were explained to the patient and informed consent was obtained. The patient was placed in the left lateral decubitus position. A digital rectal exam was performed and was found to be normal. The Olympus pediatric video colonoscope was introduced into the rectum and advanced to the cecum. The cecum was identified by transillumination, palpation, and identification of the ileocecal valve. Examination was performed. The scope was removed. She tolerated the procedure well and was taken to recovery in stable condition. FINDINGS: The terminal ileum was examined and appeared normal. The visualized colonic mucosa was normal. The quality of the prep was good. There was a small less than 5 mm sessile polyp at the ileocecal valve, which was removed using a biopsy forceps. No other polyps were identified. Retroflexed examination was normal. IMPRESSION: Colon polyp. RECOMMENDATION: Follow up biopsy results. MD SAMI Medellin/LOLA / [id number]
== END 2024-09-21 09:33 | disposition home or self-care (01) ==
PROVIDERS: PCP Internal Medicine Medical Oncology; Visit Provider Internal Medicine Gastroenterology
PROC: 0DJD8ZZ Inspection of Lower Intestinal Tract, Via Natural or Artificial Opening Endoscopic (ICD-10-PCS; CPT 45378; principal; 2024-09-21 08:20)
DX: Z12.11 Encounter for screening for malignant neoplasm of colon (principal); Z86.0101 Personal history of adenomatous and serrated colon polyps; Z83.719 Family history of colon polyps, unspecified; K63.5 Polyp of colon; Z80.0 Family history of malignant neoplasm of digestive organs; E78.5 Hyperlipidemia, unspecified; D25.9 Leiomyoma of uterus, unspecified; Z86.19 Personal history of other infectious and parasitic diseases; Z79.899 Other long term (current) drug therapy; Z98.890 Other specified postprocedural states; Z87.891 Personal history of nicotine dependence
CPT/HCPCS: 45380; 88305; J2003; J2250; J2704

== ENCOUNTER → 2024-09-27 08:00 | Outpatient (BNV) | payer OTHER, SELFPAY | PROVIDERS: PCP Internal Medicine Medical Oncology; Visit Provider Internal Medicine | DX: Z12.31 Encounter for screening mammogram for malignant neoplasm of breast (principal) | CPT/HCPCS: 77063; 77067 ==

== ENCOUNTER 2024-09-27 08:04 | Outpatient (REF) | payer OTHER, SELFPAY ==
--- NOTE | ~2024-09-27 | MM_ITS ---
EXAMINATION: MM SCREENING DIGITAL BREAST TOMOSYNTHESIS, BILATERAL CLINICAL INFORMATION: Screening. Asymptomatic. COMPARISON: Mammography: Comparison is made with available priors TECHNIQUE: Digital breast mammography with tomosynthesis is performed in both the craniocaudal and mediolateral oblique views along with computer-aided detection (CAD). FINDINGS: There are scattered areas of fibroglandular density (ACR BI-RADS breast composition Category b). Right marker clip. There are no significant masses, abnormal calcifications, or other abnormalities. MM/MM tomosynthesis screening BI IMPRESSION: No mammographic evidence of malignancy. ASSESSMENT: BI-RADS BI-RADS 2 - Benign Findings RECOMMENDATION: Routine annual mammography screening. 1 year F/U This examination should not preclude the clinical evaluation of a suspicious palpable abnormality. This patient's information was entered into a reminder system with a target due date for their next mammogram. Electronically signed by: Roxanne Valdovinos DO 10/05/2024 09:14 AM [facility]
== END 2024-09-27 08:05 | disposition home or self-care (01) ==
LOC: HO.MAMMO 08:04
PROVIDERS: PCP Internal Medicine Medical Oncology; Visit Provider Internal Medicine Medical Oncology
DX: Z12.31 Encounter for screening mammogram for malignant neoplasm of breast (principal)
CPT/HCPCS: 77063; 77067

== ENCOUNTER 2024-10-02 15:24 | Outpatient (AMB) | payer OTHER, SELFPAY ==
--- NOTE | 2024-10-02 15:24 | MHC.OFFVIS ---
Vital Signs 10/02/24 15:31 Height 5 ft 3 in Weight 168 lb BMI 29.8 Pulse 72 Intake Visit Reasons: 6m Breast Exam Intake Note: Patient is seen in office for 6 month follow up visit, breast exam. Pt c/o: denies any concerns at the time of visit Peanut Vendor Required: No Product Inspection Coordinator: Product Inspection Coordinator Present Accompanied by: Self / Same As Patient Allergies pollen extracts Allergy (Mild, Verified 10/02/24 15:25) Nasal congestion HPI Comments Details: 54-year-old female patient, former patient of Dr. Eaton and Dr. Jones, determined to be high risk for breast cancer due to her strong family history for both breast and ovarian cancer. Her mother developed ovarian cancer in her early 50s and 2 maternal aunts also developed ovarian cancer in the 50s and 60s. The 2 aunts also developed breast cancer, also in their 50s and 60s. Her mother and 2 aunts have subsequently . The patient's sister was found to have pancreatic cancer at the age of 46 and subsequently underwent surgery. She is alive and well currently. Patient's father developed a kidney cancer at the age of 49. Patient is 3 para 1, with 2 miscarriages. Her son was born when she was 18 years old and she reports breast-feeding. Menarche was at the age of 12. Her last menstrual period was May,, and she reports her menstrual cycles are irregular. She denies Ashkenazi Latter-Day heritage, tobacco use but does report radiation exposure from [place]. She grew up in [facility] and lived near the nuclear fall out of [place], as were her family members with cancer. The genetic testing revealed no clinically significant genetic mutations and 1 variant of unknown significance. Her breast cancer risk score was low at 5.4%, well below the 20% threshold. Her last mammogram was performed on 09/27/2024 although the study has not been read at the time of this dictation. Her previous mammogram performed on 09/19/2023 revealed no mammographic evidence of malignancy (BI-RADS 2). She denies any new breast symptoms at this time. [facility] Medical History Fatty liver HTN (hypertension) Hepatic cyst Uterine fibroid Hyperlipidemia Surgical History H/O colonoscopy History of right oophorectomy History of appendectomy Family History Maternal Aunt Breast cancer Ovarian cancer Maternal Aunt Breast cancer Sister Pancreatic cancer Father Cancer of kidney Mother Ovarian cancer Social History Household Members: Spouse Alcohol intake: current Alcohol intake frequency: holidays/special occasions only Alcohol type: wine Patient Tobacco Use Status: Former Tobacco user Tobacco use type: Cigarette Review of Systems Const All systems reviewed & are unremarkable except as noted in HPI and below Physical Exam Const General: healthy appearing and Physically active Nutritional Appearance: well nourished Orientation/consciousness: patient oriented x3 Limitations: no limitations Neck Neck: Yes no lymphadenopathy Lymphatic: no lymphadenopathy noted Chest Other: Left breast: No skin change, no nipple retraction, no nipple discharge, no palpable mass, no enlarged lymph nodes. Right breast: No skin change, no nipple retraction, no nipple discharge, no palpable mass, no enlarged lymph nodes Resp Effort & Inspection: normal respiratory effort, no audible wheezes, no cough and no respiratory distress Skin General skin exam: no rashes or lesions noted Neuro General: patient oriented x3 Extrem General: Yes no clubbing, cyanosis or edema Psych Appearance: grossly normal Affect: normal affect Thought process: Normal thought process present Assessment & Plan Assessment & Plan (1) Family history of breast cancer: Code(s): Z80.3 - Family history of malignant neoplasm of breast Category: Medical Plan: Patient returns today for a follow-up breast examination. Previous genetic testing revealed no clinically significant genetic mutations and 1 variant of unknown significance identified. Her breast cancer risk score was calculated below the 20% threshold. Examination today revealed no suspicious findings in either breast. Will hold off on further breast MRIs. She expressed understanding and agrees with the plan. We will await the results of her September 2024 mammogram and she will return in 6 months for follow-up examination. Coding Level of Care Code Est Pt Level 3 (92890) Diagnoses Family history of breast cancer Z80.3
[2024-10-02 15:31] VITALS: PULSE 72; BMI 29.8
== END 2024-10-02 15:58 | disposition home or self-care (01) ==
PROVIDERS: PCP Internal Medicine Medical Oncology; Visit Provider Surgery
DX: Z80.3 Family history of malignant neoplasm of breast (principal)
CPT/HCPCS: 99213

== ENCOUNTER → 2024-10-02 15:24 | Outpatient (BNVA) | payer OTHER, SELFPAY | PROVIDERS: PCP Internal Medicine Medical Oncology; Visit Provider Surgery ==

== ENCOUNTER 2025-04-18 15:27 | Outpatient (AMB) | payer OTHER, SELFPAY ==
--- NOTE | 2025-04-18 15:39 | MHC.OFFVIS ---
Vital Signs 04/18/25 15:53 Height 5 ft 3 in Weight 168 lb BMI 29.8 BP 124/75 Blood Pressure Location Lt brachial Position Sitting Pulse 80 Intake Visit Reasons: 6 mth breast exam Intake Note: Patient is seen in office for 6 month follow up visit, breast exam. Pt c/o: admits to left breast pain near the axilla, pain comes and goes for the past couple of months mm sched: 10/04/25 f/up Beth sched: 10/15/25 @ 3:30 pm [employer] Insurance Advisor Required: No Septic Pump Truck Driver: Septic Pump Truck Driver Present Accompanied by: Self / Same As Patient Allergies pollen extracts Allergy (Mild, Verified 04/18/25 15:55) Nasal congestion Medication List - Last Reconciled 04/18/25 by Bong Mayo MD lisinopril 10 mg PO DAILY valacyclovir 4,000 mg PO DAILY PRN HPI Comments Details: 54-year-old female patient, former patient of Dr. Eaton and Dr. Jones, determined to be high risk for breast cancer due to her strong family history for both breast and ovarian cancer. Her mother developed ovarian cancer in her early 50s and 2 maternal aunts also developed ovarian cancer in the 50s and 60s. The 2 aunts also developed breast cancer, also in their 50s and 60s. Her mother and 2 aunts have subsequently . The patient's sister was found to have pancreatic cancer at the age of 46 and subsequently underwent surgery. She is alive and well currently. Patient's father developed a kidney cancer at the age of 49. Patient is 3 para 1, with 2 miscarriages. Her son was born when she was 18 years old and she reports breast-feeding. Menarche was at the age of 12. Her last menstrual period was May,, and she reports her menstrual cycles are irregular. She denies Ashkenazi Anabaptist heritage, tobacco use but does report radiation exposure from [place]. She grew up in [facility] and lived near the nuclear fall out of [place], as were her family members with cancer. The genetic testing revealed no clinically significant genetic mutations and 1 variant of unknown significance. Her breast cancer risk score was low at 5.4%, well below the 20% threshold. Her last mammogram was performed on 09/27/2024 revealed no mammographic evidence of malignancy (BI-RADS 2). She is scheduled for a routine annual mammogram on 10/04/2025. She reports some pain in the left breast at the upper outer quadrant denies any history of trauma. [facility] Medical History Fatty liver HTN (hypertension) Hepatic cyst Uterine fibroid Hyperlipidemia Surgical History H/O colonoscopy History of right oophorectomy History of appendectomy Family History Maternal Aunt Breast cancer Ovarian cancer Maternal Aunt Breast cancer Sister Pancreatic cancer Father Cancer of kidney Mother Ovarian cancer Social History Household Members: Spouse Alcohol intake: current Alcohol intake frequency: holidays/special occasions only Alcohol type: wine Patient Tobacco Use Status: Former Tobacco user Tobacco use type: Cigarette Review of Systems Const All systems reviewed & are unremarkable except as noted in HPI and below Physical Exam Const General: healthy appearing and Physically active Nutritional Appearance: well nourished Orientation/consciousness: patient oriented x3 Limitations: no limitations Neck Neck: Yes no lymphadenopathy Lymphatic: no lymphadenopathy noted Chest Other: Left breast: No skin change, no nipple retraction, no nipple discharge, no palpable mass, no enlarged lymph nodes. Right breast: No skin change, no nipple retraction, no nipple discharge, no palpable mass, no enlarged lymph nodes Resp Effort & Inspection: normal respiratory effort, no audible wheezes, no cough and no respiratory distress Skin General skin exam: no rashes or lesions noted Neuro General: patient oriented x3 Extrem General: Yes no clubbing, cyanosis or edema Psych Appearance: grossly normal Affect: normal affect Thought process: Normal thought process present Assessment & Plan Assessment & Plan (1) Family history of breast cancer: Code(s): Z80.3 - Family history of malignant neoplasm of breast Category: Medical Plan: Patient returns today for a follow-up breast examination. Previous genetic testing revealed no clinically significant genetic mutations and 1 variant of unknown significance identified. Her breast cancer risk score was calculated below the 20% threshold. Examination today revealed no suspicious findings in either breast. Her most recent mammogram of 09/27/2024 revealed no mammographic evidence of malignancy (BI-RADS 2). She is scheduled for an annual mammogram on 10/04/2025. I recommended she return in approximately 6 months for routine breast examination. She is welcome to call sooner for any new concerns. Coding Level of Care Code Est Pt Level 3 (81589) Complex EM visit Add On G2211 Diagnoses Family history of breast cancer Z80.3
[2025-04-18 15:53] VITALS: BP 124/75; PULSE 80; BMI 29.8
--- OUTSIDE RECORDS SUMMARY | 2025-04-18 17:57 | XMS_ITS | Patient Health Record ---
Author Organization Carmine Giraldo III, MD Address [address] [place] [address] Care Team Providers Care Data Center Engineer Name Role Phone Carmine Giralod Primary Care Provider Allergies Allergen (clinical drug ingredient) Drug/Non Drug Allergy documented on EMR Reaction Allergy Type Onset Date Status No Known Drug Allergy Unknown Drug Allergy Active Results Component Value Reference Range Notes Pathology Reviewed date:09/27/2024 09:50:19 AM Interpretation: Performing Lab:[facility], [address] [place] [phone] Notes/Report: Name: Clair Quintero Age/Sex: 54/F [facility] 1970 [id number] [id number] Attend Dr: Abiodun Villafana MD Re09/21/24 Status : [facility] Location: [facility] Disch: SPEC : [id number] RECD : 09/21/24 STATUS: SEAN ERIC NUM: [id number] ROBERTO: 09/21/[address] [facility] [address]: Abiodun Villafana MD ENTERED: 09/21/24 SP TYPE: Surgical OTHR DR: Carmine Giraldo MD ORDERED: HE Stain/3, Gross Micro L4 Diagnosis Ileocecal valve, jasvir yp: Colonic mucosa with no specific change; no adenomatous dysplasia seen. Clinical History Pre-Op Dx: Screening Post-Op Dx: Colon polyp Microscopic Description Multiple microscopic sections reviewed. Material Received Polyp ileocecal valve Gross Description Received in formalin labeled ?polyp ileocecal valve? is a 0.35 cm avalos-pink rectangular tissue fragment, sub mitted in toto in a cassette labeled A. CEDS Copies To: Carmine Giraldo MD [address] [place] [address], [address] [place], [place] [id number] Abiodun Villafana MD [address] [place] [address] Signed (si gnature on file) Halie Bryant 09/26/24 0822 END OF REPORT SCREENING COLONOSCOPY (Not y et reviewed by provider) Interpretation:undefined Performing Lab: Notes/Report: undefined MM tomosynthesis screening B I Reviewed date:11/05/2024 06:15:47 AM Interpretation: Performing Lab: Notes/Report: [facility]'[address] [place] [address] Mammography Report Signed Patient: Clair Quintero MR#: [id number] 23 : 1970 Acct:[id number] Age/Sex: 54 / F ADM Date: 09/27/24 Loc: .MAMMO Attending Dr: Carmine Giraldo MD Ordering Physician: Carmine Giraldo MD Results: 2Benign Findings Date of Service: 09/27/24 Follow Up: 1 Year From [facility] Mammogram Procedure(s): MM tomosynthesis screening BI Accession Number(s): [id number] cc: Carmine Giraldo MD EXAMINATION: MM SCREENING DIGITAL BREAST TOMOSYNTHESIS, BILATERAL CLINICAL INFORMATION: Screening. Asymptomatic. COMPARISON: Mammography: Comparison is made with available priors TECHNIQUE: Digital breast mammography with tomosynthesis is performed in both the craniocaudal and mediolateral oblique views along with computer-aided detection (CAD). FINDINGS: There are scattered areas of fibroglandular density (ACR BI-RADS breast composition Category b). Right marker clip. There are no significant masses, abnormal calcifications, or other abnormalities. MM/MM tomosynthesis screening BI IMPRESSION: No mammographic evidence of malignancy. ASSESSMENT: BI-RADS BI-RADS 2 - Benign Findings RECOMMENDATION: Routine annual mammography screening. 1 year F/U This examination should not preclude the clinical evaluation of a suspicious palpable abnormality. This patient's information was entered into a reminder system with a target due date for their next mammogram. Electronically signed by: Roxanne Valdovinos DO 10/05/2024 09:14 AM EST RP Dictated By: Roxanne Valdovinos DO Signed By: <Electronically signed by Roxanne Valdovinos DO in OV> 10/05/24913 DD/ 1 TD/TT: 09/27/24825 Work Measurement Engineer: [facility] [address] [place] [address] Mammography Report Signed Patient: Alexandria Quintero MR#: [id number] 23 : 1970 Acct:[id number] Age/Sex: 54 / F ADM Date: 09/27/24 Loc: HO.MAMMO Attending Dr: Carmine Giraldo MD Ordering Physician: Carmine Giraldo MD Results: 2Benign Findings Date of Service: Follow Up: 1 Year From Orig ina Mammogram Procedure(s): MM juanito osynthesis screening BI Accession Number(s): [id number] cc: Carmine Giradlo MD EXAMINATION: MM SCREENING DIGITAL BREAST TOMOSYNTHESIS, BILATERAL CLINICAL INFORMATION: Screening. Asymptomatic. COMPARISON: Mammography: Compari son is made with available priors TECHNIQUE: Digital breast mammo graphy with tomosynthesis is performed in both the craniocaudal and med iolateral oblique views along with computer-aided detection (CAD). FINDINGS: There are scattered areas of fibroglandular density (ACR BI-RADS breast composition Category b). Right marker clip. There are no signifi cant masses, abnormal calcifications, or other abnormalities. M M/MM tomosynthesis screening BI IMPRESSION: No mammographic evid ence of malignancy. ASSESSMENT: BI-RADS BI-RADS 2 - Benign Findings RECOMMENDATION: Routine annual mammo graphy screening. 1 year F/U This examination herber uld not preclude the clinical evaluation of a suspicious palpable abnormality. This patient's infor mation was entered into a reminder system with a target due date for their next mammogram. Electronically lacie d by: Roxanne Valdovinos DO 10/05/2024 09:14 AM EST RP Dictated By: Roxanne Nguyen i, DO Signed By: <Viviana christalcoltenjia signed by Roxanne Valdovinos DO in OV> 10/05/24913 DD/ 1 TD/TT: 09/27/24825 Work Measurement Engineer: MAMMOGRAM DIGITAL BILATERAL SCREEN Reviewed date:01/08/2025 04:04:01 PM Interpretation:undefined Performing Lab: Notes/Report: undefined Reason For Referral No Information Medications Medication SIG (Take, Route, Fr equency, Duration) Notes Start Date End Date Status valACYclovir HCl 1 GM TAKE 2 TABLETS BY MOUTH TWICE DAILY FOR 1 DAY Oral Active Lisinopril 10 MG 1 tablet Orally Once a day 2023 Active Immunizations Vaccine Route Administration Date Status Comme nts Tdap Unknown 08/24/2020 Administered Social History Tobacco Use: Social History Observation [...] Problem Status W/U Status Risk Notes Problem 2595349 Former smoker (Z87.891) Active confirmed We made a plan to prevent relapsee in times of stress or illness. Problem 678354870 Overweight (E66.3) Active confirmed She wants very much to lose weight. We have discussed diet and nutrition today. We made a plan to lose weight at a rate of one half of a pound per week. Problem 671361275191970 Right hip pain (M25.551) Active confirmed The pain in her right hip is mild but persistent. He will continue on current therapy. If it worsens she will be referred to orthopedics. She is currently able to work full-time and pursue all of the activities of daily life. Problem 331724214 Mixed hyperlipidemia (E78.2) Active confirmed Her total cholesterol is 240 in the LDL is elevated at 174. We discussed using a statin medication to reduce her cardiovascular risk. We decided that she woulld try aggressively to lose weight over the next 3 months and then repeat the fasting lipid profile. She will consider a statin such as Lipitor at that time if the lipids have not reduced. Problem 37252592 Other secondary hypertension (I15.8) Active confirmed Her blood pressure is currently stable. I recommended a low cholesterol weight reduction low-sodium diet. Problem 52823376 Ovarian cyst (N83.20) Active confirmed She has one remaining ovary located on the Left side, which is known to have a cyst. The left ovary has been removed. She is up-to-date with gynecology and I have encouraged her to follow the directions of the outcomes manager at all times. Problem 77518750 Essential hypertension (I10) Active confirmed She was given a prescription for 10 mg daily of lisinopril. She will follow up in 21 days. She will continue to check her blood pressure at home. Problem Carpal tunnel syndrome (35319880) Carpal tunnel syndrome (G56.00) Active confirmed Problem 159130817 Right upper quadrant abdominal pain (R10.11) Active confirmed An actionable cause of this has not been found. She appears to be medically stable and will be carefully observed at this time. Problem 961736545 Abnormal mammogram (R92.8) Active confirmed Her last mammogram was August 2019 and was read as benign with a recommendation of annual studies. The radiologist calculated a Perri model lifetime risk of breast cancer of 17% Problem 50413274 Fibroids (D25.9) Active confirmed She continues to be under the care of her outcomes manager, Dr. Orlando. Problem 526143566 Radiation exposure (Z77.123) Active confirmed There is no sign of thyroid cancer at this time. Her thyroid function test) unremarkable. Problem Hepatic cyst (45352568) Hepatic cyst (K76.89) Active confirmed The cyst in her liver on an ultrasound, March 11, 2023 measured 1.5 x 1.4 x 1.4 cm. In September 2019. It measured 1.6 x 1.2 x 1.5. No intervention is required. Problem Carpal tunnel syndrome (26811007) Carpal tunnel syndrome, bilateral (G56.03) Active confirmed Problem 80157753 Abnormal liver function (R94.5) Active confirmed Her liver functions have returned to almost normal. This is likely due to obesity and fat storage. They will be followed carefully. Vital Signs Heart Rate 78 /min 01/08/2025 Temperature 98.1 degrees Fahrenheit 01/08/2025 Blood pressure diastolic 78 mm Hg 01/08/2025 Height 63 in 01/08/2025 Blood pressure systolic 125 mm Hg 01/08/2025 Weight 169 lbs 01/08/2025 BMI 29.93 kg/m2 01/08/2025 Encounters Encounter Location Date Provider Diagnosis Carmine Giraldo III, MD [address] [place] [address] [place] [address] 06/20/2024 Carmine Giraldo Essential hypertensi on I10 ; Mixed hyperlipidemia E78.2 ; Right hip pain M25.551 ; Fibroids D25.9 ; Overweight E66.3 and Radiation exposure Z77.123 Carmine Giraldo III, MD [address] [place] [address] [place] [address] 01/08/2025 Carmine Giraldo Mixed hyperlipidemia E78.2 ; Overweight E66.3 ; Fibroids D25.9 ; Ovarian cyst N83.20 ; Right hip pain M25.551 ; Radiation exposure Z77.123 ; Abnormal liver function R94.5 and Former smoker Z87.891 Carmine Giraldo III, MD [address] [place] [address] [place] [address] 05/24/2024 Carmine Giraldo III, MD [address] [place] [address] [place] [address] 05/31/2024 Carmine Giraldo Screening due Z13.9 Carmine Giraldo III, MD [address] [place] [address] [place] [address] 06/19/2024 Carmine Giraldo III, MD [address] [place] [address] [place] [address] 12/25/2024 Carmine Giraldo Mixed hyperlipidemia E78.2 ; Overweight E66.3 and Radiation exposure Z77.123 Assessments Encounter Date Diagnosis (ICD Code) Assessment Notes Treat ment Notes Treatment Clinical Notes 06/20/2024 Mixed hyperlipidemia (ICD-10 - E78.2) I [...] and consume a healthy diet instead. 06/20/2024 Essential hypertension (ICD-10 - I10) She was given a prescription for 10 mg daily of lisinopril. She will follow up in 21 days. She will continue to check her blood pressure at home. 01/08/2025 Overweight (ICD-10 - E66.3) She wants very much to lose weight. We have discussed diet and nutrition today. We made a plan to lose weight at a rate of one half of a pound per week. 01/08/2025 Mixed hyperlipidemia (ICD-10 - E78.2) Her [...] time if the lipids have not reduced. 05/31/2024 Screening due (ICD-10 - Z13.9) 12/25/2024 Mixed hyperlipidemia (ICD-10 - E78.2) 06/20/2024 Right hip pain (ICD-10 - M25.551) The pain in her right hip is mild but persistent. He will continue on current therapy. If it worsens she will be referred to orthopedics. She is currently able to work full-time and pursue all of the activities of daily life. 01/08/2025 Fibroids (ICD-10 - D25.9) She continues to be under the care of her outcomes manager, Dr. Orlando. 12/25/2024 Overweight (ICD-10 - E66.3) 06/20/2024 Fibroids (ICD-10 - D25.9) She continues to be under the care of her outcomes manager, Dr. Orlando. 01/08/2025 Ovarian cyst (ICD-10 - N83.20) She has one remaining ovary located on the Left side, which is known to have a cyst. The left ovary has been removed. She is up-to-date with gynecology and I have encouraged her to follow the directions of the outcomes manager at all times. 12/25/2024 Radiation exposure (ICD-10 - Z77.123) 06/20/2024 Overweight (ICD-10 - E66.3) She has [...] discussed weight loss strategy today at length. 01/08/2025 Right hip pain (ICD-10 - M25.551) The pain in her right hip is mild but persistent. He will continue on current therapy. If it worsens she will be referred to orthopedics. She is currently able to work full-time and pursue all of the activities of daily life. 06/20/2024 Radiation exposure (ICD-10 - Z77.123) There is no sign of thyroid cancer at this time. Her thyroid function test) unremarkable. 01/08/2025 Radiation exposure (ICD-10 - Z77.123) There [...] of stress or illness. Plan Of Treatment Pending Test Test Name Order Date URINE DIP STICK 09/29/2020 ELECTROLYTES 09/13/2022 PROFILE, FASTING (COMPREHENSIVE METABOLI C) 09/17/2019 PROFILE, FASTING (COMPREHENSIVE METABOLI C) 06/13/2023 PROFILE, FASTING (COMPREHENSIVE METABOLI C) 12/29/2022 PROFILE, FASTING (COMPREHENSIVE METABOLI C) 12/16/2022 PROFILE, FASTING (COMPREHENSIVE METABOLI C) 10/28/2023 PROFILE, FASTING (COMPREHENSIVE METABOLI C) 01/08/2025 PROFILE, FASTING (COMPREHENSIVE METABOLI C) 09/15/2022 PROFILE, FASTING (COMPREHENSIVE METABOLI C) 09/10/2019 PROFILE, FASTING (COMPREHENSIVE METABOLI C) 08/13/2022 PROFILE, FASTING (COMPREHENSIVE METABOLI C) 05/24/2018 PROFILE, FASTING (COMPREHENSIVE METABOLI C) 08/13/2020 PROFILE, FASTING (COMPREHENSIVE METABOLI C) 12/25/2024 PROFILE, RANDOM (COMPREHENSIVE METABOLIC ) 01/04/2024 PROFILE, RANDOM (COMPREHENSIVE METABOLIC ) 03/26/2019 PROFILE, RANDOM (COMPREHENSIVE METABOLIC ) 06/26/2021 AMYLASE 08/13/2022 LIPASE 08/13/2022 LIPID PANEL 08/13/2020 LIPID PANEL 09/13/2022 LIPID PANEL 09/17/2019 LIPID PANEL 08/13/2022 LIPID PANEL 07/12/2018 LIPID PANEL 06/13/2023 LIPID PANEL 12/29/2022 LIPID PANEL 12/16/2022 LIPID PANEL 12/19/2019 LIPID PANEL 09/15/2022 LIPID PANEL 09/10/2019 LIPID PANEL 05/24/2018 GGT 01/04/2024 GGT 06/13/2023 GGT 12/29/2022 LDH 06/26/2021 FREE T4 (FT4) 09/10/2019 FREE T4 (FT4) 05/24/2018 FREE T4 (FT4) 12/16/2022 TSH (THYROID STIMULATING HORMONE) 2024 TSH (THYROID STIMULATING HORMONE) 2018 TSH (THYROID STIMULATING HORMONE) 2017 TSH (THYROID STIMULATING HORMONE) 2024 TSH (THYROID STIMULATING HORMONE) 2022 CBC w DIFF 09/15/2022 CBC w DIFF 12/16/2022 CBC w DIFF 06/26/2021 CBC w DIFF 08/13/2020 CBC w DIFF 12/25/2024 CBC w DIFF 01/04/2024 CBC w DIFF 09/10/2019 CBC w DIFF 09/17/2019 CBC w DIFF 08/13/2022 CBC w DIFF 05/24/2018 CBC w DIFF 06/13/2023 CBC w DIFF 03/26/2019 CBC w DIFF 12/29/2022 SED RATE (ESR) 12/16/2022 SED RATE (ESR) 06/26/2021 SED RATE (ESR) 08/13/2020 SED RATE (ESR) 08/13/2022 SED RATE (ESR) 12/29/2022 HEPATITIS A,B,C PROFILE 08/03/2017 HIV AG/AB 08/03/2017 CA 125 03/26/2019 ALYX-RAMIRES VIRUS PROFILE (EBV) 021 SCREENING COLONOSCOPY 09/21/2024 MAMMOGRAM DIGITAL BILATERAL SCREEN 05/31 VITAMIN D 25-OH TOTAL 09/15/2022 CBC WITH AUTO DIFF 01/08/2025 CBC WITH AUTO DIFF 10/28/2023 Lipid Panel 01/08/2025 Lipid Panel 12/25/2024 Lipid Panel 09/12/2023 Lipid Panel 10/28/2023 Free T4 (Free Thyroxine) 12/25/2024 XR hand LT min 3V 01/13/2024 XR hand RT min 3V 01/13/2024 NE electromyogram (EMG) 01/13/2024 Next Appt Details Provider Name:Carmine Giraldo, 01/10/2026 04:00:00 PM, [address] [place] [address] , [place] [address], [place], [address], Insurance Providers Payer Name Payer Address Payer Phone Subscriber Number Group Number Insured Name Patient Relationship to Insured Coverage Start Date Coverage End Date [employer] [address] [place], [place] [id number] [phone] [id number] [facility] Self - patient is the insured Medical (General) History Medical History History ICD Code appendicitis age 6 uterine fibroids sinusitis labyrinthitis nocturnal epigastric pain [id number] risk of thyroid cancer, exposure to radi ation at [place]. septated large right ovarian cyst right ovarian cyst adenofibroma, resecte d 2014 BRCA1 and BRCA2 negative hepatic cyst Mixed hyperlipidemia Surgical History Surgery Date(Month/Year) colonoscopy, [facility], Dr. Esparza, tubular adenoma 19 right salpingo-oophorectomy for benign disease, cystoadenofibroma right ovary 2014 G3, P1, AB2 appendectomy, age 6
== END 2025-04-18 15:53 | disposition home or self-care (01) ==
LOC: HO.HGS 15:28
PROVIDERS: PCP Internal Medicine Medical Oncology; Visit Provider Surgery
DX: Z80.3 Family history of malignant neoplasm of breast (principal)
CPT/HCPCS: 99213

== ENCOUNTER 2025-10-04 07:27 | Outpatient (REF) | payer OTHER, SELFPAY ==
--- OUTSIDE RECORDS SUMMARY | 2024-04-04 15:15 | XMS_ITS ---
Author Organization Carmine Giraldo III, MD Address [address] [place] [address] Care Team Providers Care Dry Press Operator Helper Name Role Phone Dr. Carmine Giraldo III Primary Care Provider [phone] REASON FOR VISIT follow up Social History Sex Assigned At : Social History Observation Description Sex Assigned At Female Encounters Encounter Location Date Provider Diagnosis Carmine Giraldo III, MD [address] [place] [address] [place] [address] 04/04/2024 Carmine Giraldo Plan Of Treatment Next Appt Details Provider Name:Carmine Giraldo , 01/10/2026 04:00:00 PM, [address] [place] [address] [place], [address], Progress Notes * Clair QUINTERODOB: 8 (55 yo F)Acc No.[id number]:04/04/2024 Progress Notes Patient: Tae Clair WYMAN Provider: Corina Giraldo MD :1970 A ge:53 Y S ex:Female Date:04/04/2024 Address: [address] [id number] Subjective: * Chief Complaints: * 1 . Follow up. * Medical History: Objective: * Vitals: Assessment: Plan: * Treatment: * Images: * The named appointment provid er may or may not be the originator of this progress note, and it is not deemed complete until electronically signed by the appointment provider. Sign off status: Pending * Provider: Corina Giraldo MD Date: 0 04/04/2024 Generated for Shaun sauer/Lena/Benitting on: 12/04/2024 07:31 AM EST
--- OUTSIDE RECORDS SUMMARY | 2024-05-15 12:30 | XMS_ITS ---
Author Organization Carmine Giraldo III, MD Address [address] [place] [address] Care Team Providers Care Senior Naval Parachutist Name Role Phone Dr. Carmine Giraldo III Primary Care Provider REASON FOR VISIT follow up Social History Sex Assigned At : Social History Observation Description Sex Assigned At Female Encounters Encounter Location Date Provider Diagnosis Carmine Giraldo III, MD [address] [place] [address] [place] [address] 05/15/2024 Carmine Giraldo Plan Of Treatment Next Appt Details Provider Name:Carmine Giraldo , 01/10/2026 04:00:00 PM, [address] [place] [address] [place], [address], Progress Notes * Clair QUINTERODOB: 8 (55 yo F)Acc No.[id number]:05/15/2024 Progress Notes Patient: Tae Clair WYMAN Provider: Corina Giraldo MD :1970 A ge:53 Y S ex:Female Date:05/15/2024 Address: [address] [id number] Subjective: * Chief Complaints: * 1 . Follow up. * Medical History: Objective: * Vitals: Assessment: Plan: * Treatment: * Images: * The named appointment provid er may or may not be the originator of this progress note, and it is not deemed complete until electronically signed by the appointment provider. Sign off status: Pending * Provider: Corina Giraldo MD Date: 0 05/15/2024 Generated for Shaun sauer/Lena/Benitting on: 12/04/2024 07:31 AM EST
--- OUTSIDE RECORDS SUMMARY | 2024-05-24 08:49 | XMS_ITS ---
Author Organization Carmine Giraldo III, MD Address [address] [place] [address] Care Team Providers Care Curriculum Development Manager Name Role Phone Dr. Carmine Giraldo III Primary Care Provider [phone] REASON FOR VISIT pt facial numbness all subsided Social History Sex Assigned At : Social History Observation Description Sex Assigned At Female Encounters Encounter Location Date Provider Diagnosis Carmine Giraldo III, MD [address] [place] [address] [place] [address] 05/24/2024 Carmine Giraldo Plan Of Treatment Next Appt Details Provider Name:Carmine Giraldo , 01/10/2026 04:00:00 PM, [address] [place] [address] [place], [address], Progress Notes * Clair QUINTERODOB: 8 (53 yo F)Acc No.[id number]:05/24/2024 Patient: Tae Clair gimenez :1970 A ge:53 Y S ex:Female Address:[address] [place], [place] [address]ALEX Lu , [place], [address] * true * Date: Generated for Shaun sauer/Lena/Benitting on: 12/04/2024 07:31 AM EST
--- OUTSIDE RECORDS SUMMARY | 2024-05-31 08:58 | XMS_ITS ---
Author Organization Carmine Giraldo III, MD Address [address] [place] [address] Care Team Providers Care Insole Taper Name Role Phone Dr. Carmine Giraldo III Primary Care Provider REASON FOR VISIT Mammo due Social History Sex Assigned At : Social History Observation Description Sex Assigned At Female Encounters Encounter Location Date Provider Diagnosis Carmine Giraldo III, MD [address] [place] [address] [place] [address] 05/31/2024 Carmine Giraldo Screening due Z13.9 Assessments Encounter Date Diagnosis (ICD Code) Assessment Notes Treatment Notes Treatment Clinical Notes 05/31/2024 Screening due (ICD-10 - Z13.9) Plan Of Treatment Pending Test Test Name Order Date MAMMOGRAM DIGITAL BILATERAL SCREEN 05/31 Next Appt Details Provider Name:Carmine Giraldo , 01/10/2026 04:00:00 PM, [address] [place] [address] [place], [address], Progress Notes * Clair QUINTERODOB: 8 (53 yo F)Acc No.[id number]:05/31/2024 Patient: Clair Irene :1970 A ge:53 Y S ex:Female Address:[address] [place] [address] A[address] [facility], [address] Subjective: * Chief Complaints: * M ammo due * Medical History: * Surgical History: * Hospitalization/Major Diagno stic Procedure: * Medications: Objective: Assessment: * Assessment: 1. S creening due - Z13.9 Plan: * Treatment: * Procedure Codes: * true * Date: Generated for Shaun sauer/Lena/Praful on: 12/04/2024 07:32 AM EST
--- OUTSIDE RECORDS SUMMARY | 2024-06-19 11:19 | XMS_ITS ---
Author Organization Carmine Giraldo III, MD Address [address] [place] [address] Care Team Providers Care Orthopedic Specialist Name Role Phone Dr. Carmine Giraldo III Primary Care Provider REASON FOR VISIT Needs call back from Social History Sex Assigned At : Social History Observation Description Sex Assigned At Female Encounters Encounter Location Date Provider Diagnosis Carmine Giraldo III, MD [address] [place] [address] [place] [address] 06/19/2024 Carmine Giraldo Plan Of Treatment Next Appt Details Provider Name:Carmine Giraldo , 01/10/2026 04:00:00 PM, [address] [place] [address] [place], [address], Progress Notes * Clair QUINTERODOB: 8 (53 yo F)Acc No.[id number]:06/19/2024 Patient: Tae Clair gimenez :1970 A ge:53 Y S ex:Female Address:[address] [place] [address] R[address] Arriaga, [place], [address] * true * Date: Generated for Shaun sauer/Lena/Praful on: 12/04/2024 07:33 AM EST
--- OUTSIDE RECORDS SUMMARY | 2024-06-20 11:00 | XMS_ITS ---
Author Organization Carmine Giraldo III, MD Address [address] [place] [address] Care Team Providers Care Stockroom Supervisor Name Role Phone Dr. Carmine Giraldo III Primary Care Provider Allergies Allergen (clinical drug ingredient) Drug/Non Drug Allergy documented on EMR Reaction Allergy Type Onset Date Status No Known Drug Allergy Unknown Drug Allergy Active REASON FOR VISIT Hypertension Medications Medication SIG (Take, Route, Fr equency, Duration) Notes Start Date End Date Status valACYclovir HCl 1 GM TAKE 2 TABLETS BY MOUTH TWICE DAILY FOR 1 DAY Oral Active Lisinopril 10 MG 1 tablet Orally Once a day for 30 days 06/20/2024 Active Social History Tobacco Use: Social History Observation Description Date Details (start date - stop date) Never Smoker NA - NA Sex Assigned At : Social History Observation Description Sex Assigned At Female Tobacco Use/Smoking Question Answer Notes Patient is a nonsmoker Additional Findings: Tobacco Non-User Aggressive non-smoker Problems Problem Type SNOMED Code ICD Code Onset Dates Problem Status W/U Status Risk Notes Problem [id number] Essential hypertension (I10) Active confirmed She was given a prescription for 10 mg daily of lisinopril. She will follow up in 21 days. She will continue to check her blood pressure at home. Vital Signs Temperature 97.2 degrees Fahrenheit 06/20/20 24 Blood pressure systolic 143 mm Hg 06/20/20 24 Blood pressure diastolic 90 mm Hg 024 Heart Rate 74 /min 06/20/2024 Height 63 in 06/20/2024 Weight 168 lbs 06/20/2024 BMI 29.76 kg/m2 06/20/2024 Encounters Encounter Location Date Provider Diagnosis Carmine Giraldo III, MD [address] [place] [address] DR ALVARADO, ISABELLA [address] 06/20/2024 Carmine Giraldo Essential hypertensi on I10 ; Mixed hyperlipidemia E78.2 ; Right hip pain M25.551 ; Fibroids D25.9 ; Overweight E66.3 and Radiation exposure Z77.123 Assessments Encounter Date Diagnosis (ICD Code) Assessment Notes Treat ment Notes Treatment Clinical Notes 06/20/2024 Essential hypertension (ICD-10 - I10) She was given a prescription for 10 mg daily of lisinopril. She will follow up in 21 days. She will continue to check her blood pressure at home. 06/20/2024 Mixed hyperlipidemia (ICD-10 - E78.2) I have advised a diet reduced in calories in animal fat. A fasting lipid profile will be repeated in the near future. Her total cholesterol is slightly elevated at 231 with an HDL of 43. The LDL is 168. I have reviewed the elements of a low-cholesterol diet. We reviewed lesly cardiac risk factors. We discussed using medication to lower the total cholesterol. She wants to lose weight and consume a healthy diet instead. 06/20/2024 Right hip pain (ICD-10 - M25.551) The pain in her right hip is mild but persistent. He will continue on current therapy. If it worsens she will be referred to orthopedics. She is currently able to work full-time and pursue all of the activities of daily life. 06/20/2024 Fibroids (ICD-10 - D25.9) She continues to be under the care of her wood room hand, Dr. Orlando. 06/20/2024 Overweight (ICD-10 - E66.3) She has lost 6 pounds since her last visit and her body mass index is now in the overweight range at 29. This has not had a desirable effect upon her liver function tests or her elevated total cholesterol, however. I encouraged her to continue her weight loss until her body mass index is in the normal range. We discussed weight loss strategy today at length. 06/20/2024 Radiation exposure (ICD-10 - Z77.123) There is no sign of thyroid cancer at this time. Her thyroid function test) unremarkable. Plan Of Treatment Medication Medication Name Sig Start Date Stop Date Notes valACYclovir HCl 1 GM TAKE 2 TABLETS BY MOUTH TWICE DAILY FOR 1 DAY Oral Lisinopril 10 MG 1 tablet Orally Once a day for 30 days 06/20/2024 Next Appt Details Follow Up: 3 Weeks, Reason: Office visit Provider Name:Carmine Giraldo , 01/10/2026 04:00:00 PM, [address] [place] [address], [address], Progress Notes * Clair QUINTERODOB: 8 (53 yo F)Acc No.[id number]:06/20/2024 Progress Notes Patient: Clair Irene Provider: Corina Giraldo MD :1970 A ge:53 Y S ex:Female Date:06/20/2024 Address:[address] [place], [place] [id number] Subjective: * Chief Complaints: * H ypertension * HPI: v : She has been taking her blood pressure at work and the systolic is running about 150 with a diastolic between 80 and 90. After lying down today her pressure remained elevated. I have begun her on lisinopril 10 mg daily with a follow-up visit. Her renal function is normal. The risks and benefits of this medication were carefully explained including the possibility of hyperkalemia and a rash. She gave consent for the medication. * ROS: G eneral/Constitutional: pain o nly normal aches and pains. C hills d enies.?Fatigue a dmits. F ever d enies. E NT: Decreased hearing d enies. R espiratory: Cough d enies. C ardiovascular: Chest pain with exertion d enies. D yspnea on exertion?denies. S hortness of breath d enies. G astrointestinal: Constipation o ccasional. D ecreased appetite d enies. D iarrhea d enies. H eartburn d enies. N ausea d enies. R ectal bleeding d enies. V omiting d enies. H ematology: bruising d enies. p etechiae d enies. S wollen glands n one have been noted. G enitourinary: Frequent urination d enies. M usculoskeletal: Muscle aches d enies. P ainful joints d enies. S ciatica d enies. W eakness d enies. S kin: Itching d enies. R katarzyna d enies. S kin lesion(s)?denies. N eurologic: Difficulty speaking d enies. D izziness d enies.?Headache d enies. L ow back pain d enies. P sychiatric: Depressed mood d enies. * Medical History: * Surgical History: a ppendectomy, age 6 G3, P1, AB2 right salpingo-oophorectomy for benign disease, cystoadenofibroma right ovary 2015colonoscopy, [facility], Dr. Esparza, tubular adenoma * Hospitalization/Major Diagno stic Procedure: D enies Past Hospitalization * Family History: F ather: 49 yrs, kidney cancer, diagnosed with Cancer. M other: 63 yrs, liver/ovary issues/hypertension/stroke, diagnosed with HTN. C hildren: alive. S on(s): alive 25 yrs. S iblings: alive. 1 brother(s) , 1 sister(s) - healthy. 1 son(s) - healthy. . She has a brother and a sister both of whom have asthma. She is not aware of any family history of substance use disorder or mental illness. * Social History: T obacco Use: T obacco Use/Smoking P atient is a n onsmoker A dditional Findings: Tobacco Non-User A ggressive non-smoker S he lives in [place], [place]. She has been to [facility] for many years. They have one son, Charles, who is attending college in [place], [place]. 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 She works 34-36 hours a week. * Medications: T akingvalACYclovir HCl 1 GM Tablet TAKE 2 TABLETS BY MOUTH TWICE DAILY FOR 1 DAY Oral Medication List reviewed and reconciled with the patientTaking valACYclovir HCl 1 GM Tablet TAKE 2 TABLETS BY MOUTH TWICE DAILY FOR 1 DAY Oral Medication List reviewed and reconciled with the patient * Allergies: N o Known Drug Allergyno[Allergies Verified] Objective: * Vitals: H t: 63, Wt: 168, BMI:29.76, BP: 143/90, HR: 74, Temp: 97.2, Wt-k.2. * Examination: G eneral Examination: GENERAL APPEARANCE: p leasant, well nourished, well developed, in no acute distress, calm and relaxed , overweight , woman. HEAD: a traumatic, normocephalic. EYES: e farhan, perrla, anicteric, conjugate. EARS: n ormal. NOSE: s eptum intact. ORAL CAVITY: n ormal, unremarkable. NECK/THYROID: n o jugular venous distention, no carotid bruit, thyroid normal. LYMPH NODES: n o enlarged lymph nodes,spleen normal. SKIN: n o suspicious lesions, anicteric. HEART: n o clicks, gallops, murmurs, or rubs, regular rhythm, S1, S2 normal, no s3, or vascular bruits. LUNGS: c lear to auscultation . BREASTS: n ot examined. ABDOMEN: b owel sounds normal, no ascites, no organomegaly, no mass , overweight. RECTAL EXAM: n ot examined. MUSCULOSKELETAL: e xtremities unremarkable, no clubbing, cyanosis or edema. PERIPHERAL PULSES: n ormal. NEUROLOGIC: a lert and oriented, cranial nerves 2-12 grossly intact, deep tendon reflexes 2+ symmetrical, motor strength normal upper and lower extremities, sensory exam intact. PSYCH: a lert, oriented. Assessment: * Assessment: 1. E ssential hypertension - I10 (Primary), She was given a prescription for 10 mg daily of lisinopril. She will follow up in 21 days. She will continue to check her blood pressure at home. 2 . M ixed hyperlipidemia - E78.2, I have advised a diet reduced in calories in animal fat. A fasting lipid profile will be repeated in the near future. Her total cholesterol is slightly elevated at 231 with an HDL of 43. The LDL is 168. I have reviewed the elements of a low-cholesterol diet. We reviewed lesly cardiac risk factors. We discussed using medication to lower the total cholesterol. She wants to lose weight and consume a healthy diet instead. 3 . R ight hip pain - M25.551, The pain in her right hip is mild but persistent. He will continue on current therapy. If it worsens she will be referred to orthopedics. She is currently able to work full-time and pursue all of the activities of daily life. 4 . F ibroids - D25.9, She continues to be under the care of her wood room hand, Dr. Orlando. 5 . O verweight - E66.3, She has lost 6 pounds since her last visit and her body mass index is now in the overweight range at 29. This has not had a desirable effect upon her liver function tests or her elevated total cholesterol, however. I encouraged her to continue her weight loss until her body mass index is in the normal range. We discussed weight loss strategy today at length. 6 . R adiation exposure - Z77.123, There is no sign of thyroid cancer at this time. Her thyroid function test) unremarkable. Plan: * Treatment: * Procedure Codes: * Preventive Medicine: Counseling: C are goal follow-up plan: Counseling for abnormal BMI given Y es Above Normal BMI Follow-up D ietary management education, guidance, and counseling, Dietary needs education, Exercise promotion: strength training, Exercise promotion: stretching, Feeding regime, Giving encouragement to exercise, Lifestyle education regarding diet, Nutrition / feeding management, Nutrition therapy, Prescribed activity/exercise education, Prescribed diet education, Prescribed dietary intake, Special diet education, Weight monitoring , Intervention, Order not done: Medical or Other reason not done * Follow Up: 3 Weeks (Reason: Office visit) * Images: * Sign off status: Completed true * Provider: Corina Giraldo MD Date: 0 06/20/2024 Generated for Shaun sauer/Lena/eTransmitting on: 12/04/2024 07:33 AM EST History and Physical Notes * Examination Category Sub-Category Detail Notes General Examination GENERAL APPEARANCE: pleasant , well nourished, well developed, in no acute distress, calm and relaxed , overweight , woman HEAD: atraumatic, normocep halic EYES: eomi, perrla, anicte sue, conjugate EARS: normal NOSE: septum intact NECK/THYROID: no jugular venous di stention, no carotid bruit, thyroid normal HEART: no clicks, gallops, murmurs, or rubs, regular rhythm, S1, S2 normal, no s3, or vascular bruits LUNGS: clear to auscultatio n ABDOMEN: bowel sounds normal, no ascites, no organomegaly, no mass , overweight NEUROLOGIC: alert and oriented, cranial nerves 2-12 grossly intact, deep tendon reflexes 2+ symmetrical, motor strength normal upper and lower extremities, sensory exam intact SKIN: no suspicious lesion s, anicteric PERIPHERAL PULSES: normal BREASTS: not examined MUSCULOSKELETAL: extremities unremark able, no clubbing, cyanosis or edema LYMPH NODES: no enlarged lymph no diego,spleen normal RECTAL EXAM: not examined PSYCH: alert, oriented ORAL CAVITY: normal, unremarkable
--- OUTSIDE RECORDS SUMMARY | 2024-07-13 13:00 | XMS_ITS ---
Author Organization Carmine Giraldo III, MD Address [address] [place] [address] Care Team Providers Care Auto Air Conditioning Mechanic Name Role Phone Dr. Carmine Giraldo III Primary Care Provider Allergies Allergen (clinical drug ingredient) Drug/Non Drug Allergy documented on EMR Reaction Allergy Type Onset Date Status No Known Drug Allergy Unknown Drug Allergy Active REASON FOR VISIT Follow up Medications Medication SIG (Take, Route, Fr equency, Duration) Notes Start Date End Date Status valACYclovir HCl 1 GM TAKE 2 TABLETS BY MOUTH TWICE DAILY FOR 1 DAY Oral Active Lisinopril 10 MG 1 tablet Orally Once a day 2023 Active Social History Tobacco Use: Social History Observation Description Date Details (start date - stop date) Never Smoker NA - NA Sex Assigned At : Social History Observation Description Sex Assigned At Female Tobacco Use/Smoking Question Answer Notes Patient is a nonsmoker Additional Findings: Tobacco Non-User Aggressive non-smoker Encounters Encounter Location Date Provider Diagnosis Carmine Giraldo III, MD [address] [place] [address] [place] [address] 07/13/2024 Carmine Giraldo Plan Of Treatment Medication Medication Name Sig Start Date Stop Date Notes valACYclovir HCl 1 GM TAKE 2 TABLETS BY MOUTH TWICE DAILY FOR 1 DAY Oral Lisinopril 10 MG 1 tablet Orally Once a day 06/20/2024 Next Appt Details Provider Name:Carmine Giraldo , 01/10/2026 04:00:00 PM, [address] [place] [address] [address], [place], [address], Progress Notes * Clair QUINTERODOB: 8 (55 yo F)Acc No.[id number]:07/13/2024 Progress Notes Patient: Clair HERNÁNDEZ Provider: Corina Giraldo MD :1970 A ge:53 Y S ex:Female Date:07/13/2024 Address:[address] [place], [place] [id number] Subjective: * Chief Complaints: * 1 . Follow up. * HPI: C OVID-19 Screening: Questions H ave you had any new onset fever, chills, cough, congestion, sore throat, shortness of breath, muscle aches? N o H ave you been exposed to the virus within the last 10 days? N o H ave you travelled internationally in the last 10 days? N o H ave you been exposed to COVID-19 in the past? N o * ROS: G eneral/Constitutional: pain o nly normal aches and pains. C hills d enies.?Fatigue a dmits. F ever d enies. E NT: Decreased hearing d enies. R espiratory: Cough d enies. C ardiovascular: Chest pain with exertion d enies. D yspnea on exertion?denies. S hortness of breath d enies. G astrointestinal: Constipation d enies. D ecreased appetite d enies.?Diarrhea d enies. H eartburn d enies. N ausea d enies. R ectal bleeding?denies. V omiting d enies. H ematology: bruising [...] Depressed mood d enies. * Medical History: A ppendicitis age 6, Uterine fibroids, Sinusitis, Labyrinthitis, Nocturnal epigastric pain, [id number], risk of thyroid cancer, exposure to radiation at [place]., Septated large right ovarian cyst, Right ovarian cyst adenofibroma, resected 2014, BRCA1 and BRCA2 negative, Hepatic cyst, Mixed hyperlipidemia. * Surgical History: a ppendectomy, age 6 , G3, P1, AB2 , right salpingo-oophorectomy for benign disease, cystoadenofibroma right ovary 2014, colonoscopy, [facility], Dr. Esparza, tubular adenoma . * Hospitalization/Major Diagno stic Procedure: D enies Past Hospitalization. * Family History: F ather: 49 yrs, [...] A ggressive non-smoker S he lives in [place], [place]. She has been to [place] for many years. They have one son, Charles, who is attending college in [place], [place]. 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 * Medications: T erikag valACYclovir HCl 1 GM Tablet TAKE 2 TABLETS BY MOUTH TWICE DAILY FOR 1 DAY Oral , Taking Lisinopril 10 MG Tablet 1 tablet Orally Once a day , Medication List reviewed and reconciled with the patient * Allergies: N o Known Drug Allergy. Objective: * Vitals: * Examination: G eneral Examination: GENERAL APPEARANCE: p leasant, well nourished, well developed, in no acute distress, calm and relaxed. HEAD: a traumatic, normocephalic. EYES: e farhan, [...] LUNGS: c lear to auscultation . BREASTS: no masses palpable bilaterally. ABDOMEN: b owel sounds normal, no ascites, no organomegaly, no mass. RECTAL EXAM: n ot examined. MUSCULOSKELETAL: e xtremities unremarkable, no clubbing, cyanosis or edema. PERIPHERAL PULSES: n ormal. NEUROLOGIC: a lert and oriented, cranial nerves 2-12 grossly intact, deep tendon reflexes 2+ symmetrical, motor strength normal upper and lower extremities, sensory exam intact. PSYCH: a lert, oriented. Assessment: Plan: * Treatment: * Images: * The named appointment provid er may or may not be the originator of this progress note, and it is not deemed complete until electronically signed by the appointment provider. Sign off status: Pending * Provider: Corina Giraldo MD Date: 0 07/13/2024 Generated for Shaun sauer/Lena/Benitting on: 12/04/2024 07:33 AM EST History and Physical Notes * HPI (History of Present Illness) Category Sub-Category Detail Notes COVID-19 Screening Questions Have you had any new onset fever, chills, cough, congestion, sore throat, shortness of breath, muscle aches?: No Have you been exposed to the virus withi n the last 10 days?: No Have you travelled internationally in last 10 days?: No Have you been exposed to COVID-19 in the past?: No Examination Category Sub-Category Detail Notes General Examination GENERAL APPEARANCE: pleasant , well nourished, well developed, in no acute distress, calm and relaxed HEAD: atraumatic, normocep halic EYES: eomi, perrla, anicte sue, conjugate EARS: normal NOSE: septum intact NECK/THYROID: no jugular venous di stention, no carotid bruit, thyroid normal HEART: no clicks, gallops, murmurs, or rubs, regular rhythm, S1, S2 normal, no s3, or vascular bruits LUNGS: clear to auscultatio n ABDOMEN: bowel sounds normal, no ascites, no organomegaly, no mass NEUROLOGIC: alert and oriented, cranial nerves 2-12 grossly intact, deep tendon reflexes 2+ symmetrical, motor strength normal upper and lower extremities, sensory exam intact SKIN: no suspicious lesion s, anicteric PERIPHERAL PULSES: normal BREASTS: no masses palpable b ilaterally MUSCULOSKELETAL: extremities unremark able, no clubbing, cyanosis or edema LYMPH NODES: no enlarged lymph no diego,spleen normal RECTAL EXAM: not examined PSYCH: alert, oriented ORAL CAVITY: normal, unremarkable
--- OUTSIDE RECORDS SUMMARY | 2024-07-27 10:00 | XMS_ITS ---
Author Organization [facility] Address [address] [place] [address] Care Team Providers Care Vocational Coordinator Name Role Phone CHRISTINE MONROY, MARIBETH Primary Care Provider Unavailab Hellen Silva Unavailable [phone] REASON FOR VISIT ULTRA - PMB CK LT OVARY AND ENDO LAYER Encounters Encounter Location Date Provider Diagnosis [facility] [address] [place] [address] 07/27/2024 Hellen Valenzuela Plan Of Treatment Next Appt Details Provider Name:Hellen castellanosjoel, 07/16/2026 03:00:00 PM, [address], [address], [place], [address], Progress Notes * JODY ALCARAZDOB: 8 (55 yo F)Acc No.[id number]:07/27/2024 PROGRESS NOTES Patient: JODY HERNÁNDEZ Appointment Provider: Joel Valenzuela M.D. :1970 A ge:53 Y S ex:Female Date:07/27/2024 Address: [address] , [place], [place] Pcp:MARIBETH KING MD Subjective: * Chief Complaints: * 1 . ULTRA - PMB CK LT OVARY AND ENDO LAYER. * Medical History: Objective: * Vitals: Assessment: Plan: * Treatment: * Images: Billing Information: * Visit Code: * Procedure Codes: * Electronic signature of Caity Valenzuela MD on 10/04/2025 at 07:31 AM EST Sign off status: Pending * Appointment Provider: Joel Valenzuela M.D. Date: 0 07/27/2024 Generated for Shaun sauer/Lena/Praful on: 12/04/2024 07:31 AM EST
--- OUTSIDE RECORDS SUMMARY | 2024-08-01 03:00 | XMS_ITS ---
Author Organization [facility] Address [address] [place] [address] Care Team Providers Care Linux Consultant Name Role Phone CHRISTINE MONROY, MARIBETH Primary Care Provider Unavailab Hellen Silva Unavailable [phone] REASON FOR VISIT ULTRA - PMB CK LT OVARY AND ENDO LAYER Encounters Encounter Location Date Provider Diagnosis [facility] [address] [place] [address] 08/01/2024 Hellen Valenzuela Plan Of Treatment Next Appt Details Provider Name:Hellen castellanosjoel, 07/16/2026 03:00:00 PM, [address] [facility], [address], [place], [address], Progress Notes * JODY ALCARAZDOB: [birth year] (55 yo F)Acc No.[id number]:08/01/2024 PROGRESS NOTES Patient: JODY HERNÁNDEZ Appointment Provider: Joel Valenzuela M.D. :1970 A ge:53 Y S ex:Female Date:08/01/2024 Address: [address] , [place], [place] Pcp:MARIBETH KING MD Subjective: * Chief Complaints: * 1 . ULTRA - PMB CK LT OVARY AND ENDO LAYER. * Medical History: Objective: * Vitals: Assessment: Plan: * Treatment: * Images: Billing Information: * Visit Code: * Procedure Codes: * Electronic signature of Caity Valenzuela MD on 10/04/2025 at 07:33 AM EST Sign off status: Pending * Appointment Provider: Joel Valenzuela M.D. Date: 0 08/01/2024 Generated for Shaun sauer/Lena/Praful on: 12/04/2024 07:33 AM EST
--- OUTSIDE RECORDS SUMMARY | 2024-09-21 03:20 | XMS_ITS ---
Author Organization [facility] Address [address] [place] [address] Care Team Providers Care Photographer Model Name Role Phone Enzo MONROY, Carmine Primary Care Provider Unavailab Abiodun Topete Jr REASON FOR VISIT screening Encounters Encounter Location Date Provider Diagnosis [facility] Outpatient [address] [place] [phone] 09/21/2024 Abiodun Villfaana Jr Colon cancer screening Z12.11 and Colon polyps K63.5 Assessments Encounter Date Diagnosis (ICD Code) Assessment Notes Treatment Notes Treatment Clinical Notes Section Notes 09/21/2024 Colon cancer screening (ICD-10 - Z12.11) 09/21/2024 Colon polyps (ICD-10 - K63.5) Plan Of Treatment No Information Progress Notes * JODY ALCARAZDOB: [birth year] (55 yo F)Acc No.[id number]:09/21/2024 COLON WITH MAC Patient: JODY HERNÁNDEZ Provider: Loida Villafana MD :1970 A ge:54 Y S ex:Female Date:09/21/2024 Address:[address] [id number] Pcp:Carmine Giraldo MD Subjective: * Chief Complaints: * S creening Assessment: * Assessment: 1. C olon cancer screening - Z12.11 (Primary) 2 . C olon polyps - K63.5? Plan: * Procedure Codes: 4 5380 COLONOSCOPY AND [id number] INTRVL 3+YRS PTS CLNSCP DOCD Billing Information: * Procedure Codes: 84753 COLONOSCOPY AND BIOPSY. 0529F INTRVL 3+YRS PTS CLNSCP DOCD. * The named appointment provid er may or may not be the originator of this progress note, and it is not deemed complete until electronically signed by the appointment provider. Sign off status: Pending * Provider: Loida Villafana MD Date: 11/21/2023 Generated for Shaun sauer/Lena/Benitting on: 12/04/2024 07:32 AM EST
--- OUTSIDE RECORDS SUMMARY | 2024-09-24 03:00 | XMS_ITS ---
Author Organization [facility] Address [address] [place] [address] Care Team Providers Care Hazmat Cdl Driver Name Role Phone CHRISTINE MONROY, MARIBETH Primary Care Provider Unavailab Hellen Silva Unavailable [phone] REASON FOR VISIT MEDICATION F/U (ORANGE FORM DONE) Encounters Encounter Location Date Provider Diagnosis [facility] [address] [place] [address] 09/24/2024 Hellen Valenzuela Plan Of Treatment Next Appt Details Provider Name:Hellen del toroalice, 07/16/2026 03:00:00 PM, [address], [address], [place], [address], Progress Notes * JODY ALCARAZDOB: [birth year] (55 yo F)Acc No.[id number]:09/24/2024 Patient: JODY HERNÁNDEZ Appointment Provider: Dhara Valenzuela M.D. :1970 A ge:54 Y S ex:Female Date:09/24/2024 Address: [address] , [place], [place] Pcp:MARIBETH KING MD Subjective: * Chief Complaints: * 1 . MEDICATION F/U (ORANGE FORM DONE). * Medical History: O ther specified conditions associated with female genital organs and menstrual cycle, Other specified abnormal uterine and vaginal bleeding, Right lower quadrant pain, Other ovarian cysts, Pelvic and perineal pain, Inconclusive mammogram, Herpesviral infection, unspecified, Herpesviral vesicular dermatitis, Leiomyoma of uterus, unspecified, Excessive and frequent menstruation with regular cycle, Other specified abnormal uterine and vaginal bleeding, Postmenopausal atrophic vaginitis, Postmenopausal bleeding, Unspecified menopausal and perimenopausal disorder, Menopausal and female climacteric states. 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 S exual activity c urrently sexually active. L ast Pap Smear: NIL, NEG HPV, 02/02/19 NIL, NEG HPV, 06/2018 neg, NEG HRHPV, 11/13/15 NEG HRHPV, 09/03/13, NEG HRHPV. M ammogram: 1 11/19/22 < 50% density ([place]), 08/2022, 08/24/21 < 50% density, 09/2020 [place], 04/2019 Bilateral MRI- Normal 09/2019, 08/2018 [place] with Myra Delongmonse, 09/16/2017 normal, 08/03/16 50-75% density, 06/2015. L MP and menses M shy 06/2021. B irth Control: n one. C olonoscopy q 5 years benign polyps. G YN HISTORY MISC. Negative BRACA with Dr. Pulido. 08/19/16 [facility] Breast Letter 2 with Risk Assessment Form Mailed to Patient to make appointment with Nilda. * OB History: T otal pregnancies 4 . T otal living children 1 . N VD 1 . Objective: * Vitals: Assessment: Plan: * Treatment: * Images: Billing Information: * Visit Code: * Procedure Codes: * Electronic signature of Caity Valenzuela MD on 10/04/2025 at 07:32 AM EST Sign off status: Pending * Appointment Provider: Dhara Valenzuela M.D. Date: 11/24/2023 Generated for Shaun sauer/Lena/Praful on: 12/04/2024 07:32 AM EST
--- OUTSIDE RECORDS SUMMARY | 2024-12-25 06:35 | XMS_ITS ---
Author Organization Carmine Giraldo III, MD Address [address] [place] [address] Care Team Providers Care Economic Forecaster Name Role Phone Dr. Carmine Giraldo III Primary Care Provider REASON FOR VISIT lab order request Social History Sex Assigned At : Social History Observation Description Sex Assigned At Female Encounters Encounter Location Date Provider Diagnosis Carmine Giraldo III, MD [address] [place] [address] [place] [address] 12/25/2024 Carmine Giraldo Mixed hyperlipidemia E78.2 ; Overweight E66.3 and Radiation exposure Z77.123 Assessments Encounter Date Diagnosis (ICD Code) Assessment Notes Treat ment Notes Treatment Clinical Notes 12/25/2024 Mixed hyperlipidemia (ICD-10 - E78.2) 12/25/2024 Overweight (ICD-10 - E66.3) 12/25/2024 Radiation exposure (ICD-10 - Z77.123) Plan Of Treatment Pending Test Test Name Order Date PROFILE, FASTING (COMPREHENSIVE METABOLI C) 12/25/2024 TSH (THYROID STIMULATING HORMONE) 2024 CBC w DIFF 12/25/2024 Lipid Panel 12/25/2024 Free T4 (Free Thyroxine) 12/25/2024 Next Appt Details Provider Name:Carmine Giraldo , 01/10/2026 04:00:00 PM, [address] [place] [address] [address], [place], [address], Progress Notes * Clair QUINTERODOB: 8 (54 yo F)Acc No.[id number]:12/25/2024 Patient: Clair HERNÁNDEZ :1970 A ge:54 Y S ex:Female Address:[address] [place] [address], [address] Subjective: * Chief Complaints: * L ab order request * Medical History: * Surgical History: * Hospitalization/Major Diagno stic Procedure: * Medications: Objective: * Vitals: * Physical Examination: Assessment: * Assessment: 1. M ixed hyperlipidemia - E78.2 2 . O verweight - E66.3 3 . R adiation exposure - Z77.123 Plan: * Treatment: 2. O verweight L AB: PROFILE, FASTING (COMPREHENSIVE METABOLIC) L AB: TSH (THYROID STIMULATING HORMONE) L AB: CBC w DIFF L AB: Lipid Panel L AB: Free T4 (Free Thyroxine) 3. R adiation exposure L AB: PROFILE, FASTING (COMPREHENSIVE METABOLIC) L AB: TSH (THYROID STIMULATING HORMONE) L AB: CBC w DIFF L AB: Lipid Panel L AB: Free T4 (Free Thyroxine) * Procedure Codes: * true * Date: Generated for Shaun sauer/Lena/eTransmitting on: 12/04/2024 07:31 AM EST
--- OUTSIDE RECORDS SUMMARY | 2025-01-08 11:00 | XMS_ITS ---
Author Organization Carmine Giraldo III, MD Address [address] [place] [address] Care Team Providers Care High Heel Builder Name Role Phone Dr. Carmine Giraldo III Primary Care Provider Allergies Allergen (clinical drug ingredient) Drug/Non Drug Allergy documented on EMR Reaction Allergy Type Onset Date Status No Known Drug Allergy Unknown Drug Allergy Active REASON FOR VISIT Annual Exam Medications Medication SIG (Take, Route, Fr equency, Duration) Notes Start Date End Date Status valACYclovir HCl 1 GM TAKE 2 TABLETS BY MOUTH TWICE DAILY FOR 1 DAY Oral Active Lisinopril 10 MG 1 tablet Orally Once a day 2023 Active Social History Tobacco Use: Social History Observation Description Date Details (start date - stop date) Former Smoker NA - NA Sex Assigned At : Social History Observation Description Sex Assigned At Female Tobacco Control (Standard) Question Answer Notes Tobacco use: Former smoker How long has it been since you last smoked? Grea ter than 10 years Additional Findings: Tobacco non-user Ex-cigaret te smoker AUDIT-C (Standard) Question Answer Notes Did you have a drink contain ing alcohol in the past year? Yes How often did you have six o r more drinks on one occasion in the past year? 2 to 4 times a month (2 points) How many drinks did you have on a typical day when you were drinking in the past year? 1 or 2 drinks (0 point) How often did you have a dri nk containing alcohol in the past year? Never (0 point) Points 2 Interpretation Negative Problems Problem Type SNOMED Code ICD Code Onset Dates Problem Status W/U Status Risk Notes Problem 7935628 Former smoker (Z87.891) Active confirmed We made a plan to prevent relapsee in times of stress or illness. Vital Signs Temperature 98.1 degrees Fahrenheit 01/08/20 25 Blood pressure systolic 125 mm Hg 01/08/20 25 Blood pressure diastolic 78 mm Hg 025 Heart Rate 78 /min 01/08/2025 Height 63 in 01/08/2025 Weight 169 lbs 01/08/2025 BMI 29.93 kg/m2 01/08/2025 Encounters Encounter Location Date Provider Diagnosis Carmine Giraldo III, MD [address] [place] [address] [place] [address] 01/08/2025 Carmine Giraldo Mixed hyperlipidemia E78.2 ; Overweight E66.3 ; Fibroids D25.9 ; Ovarian cyst N83.20 ; Right hip pain M25.551 ; Radiation exposure Z77.123 ; Abnormal liver function R94.5 and Former smoker Z87.891 Assessments Encounter Date Diagnosis (ICD Code) Assessment Notes Treat ment Notes Treatment Clinical Notes 01/08/2025 Mixed hyperlipidemia (ICD-10 - E78.2) Her total cholesterol is 240 in the LDL is elevated at 174. We discussed using a statin medication to reduce her cardiovascular risk. We decided that she woulld try aggressively to lose weight over the next 3 months and then repeat the fasting lipid profile. She will consider a statin such as Lipitor at that time if the lipids have not reduced. 01/08/2025 Overweight (ICD-10 - E66.3) She wants very much to lose weight. We have discussed diet and nutrition today. We made a plan to lose weight at a rate of one half of a pound per week. 01/08/2025 Fibroids (ICD-10 - D25.9) She continues to be under the care of her outsole splicer, Dr. Orlando. 01/08/2025 Ovarian cyst (ICD-10 - N83.20) She has one remaining ovary located on the Left side, which is known to have a cyst. The left ovary has been removed. She is up-to-date with gynecology and I have encouraged her to follow the directions of the outsole splicer at all times. 01/08/2025 Right hip pain (ICD-10 - M25.551) The pain in her right hip is mild but persistent. He will continue on current therapy. If it worsens she will be referred to orthopedics. She is currently able to work full-time and pursue all of the activities of daily life. 01/08/2025 Radiation exposure (ICD-10 - Z77.123) There is no sign of thyroid cancer at this time. Her thyroid function test) unremarkable. 01/08/2025 Abnormal liver function (ICD-10 - R94.5) Her liver functions have returned to almost normal. This is likely due to obesity and fat storage. They will be followed carefully. 01/08/2025 Former smoker (ICD-10 - Z87.891) We made a plan to prevent relapsee in times of stress or illness. Plan Of Treatment Medication Medication Name Sig Start Date Stop Date Notes valACYclovir HCl 1 GM TAKE 2 TABLETS BY MOUTH TWICE DAILY FOR 1 DAY Oral Lisinopril 10 MG 1 tablet Orally Once a day 06/20/2024 Pending Test Test Name Order Date PROFILE, FASTING (COMPREHENSIVE METABOLI C) 01/08/2025 TSH (THYROID STIMULATING HORMONE) 2024 CBC WITH AUTO DIFF 01/08/2025 Lipid Panel 01/08/2025 Next Appt Details Follow Up: 3 Months, Reason: OV Provider Name:Carmine Giraldo , 01/10/2026 04:00:00 PM, [address] [place] [address] [address], [facility], [address], Progress Notes * KIERAN JefferykgDOB: 8 (54 yo F)Acc No.[id number]:01/08/2025 Progress Notes Patient: Clair HERNÁNDEZ Provider: Corina Giraldo MD :1970 A ge:54 Y S ex:Female Date:01/08/2025 Address:[address], [id number] Subjective: * Chief Complaints: * A nnual Exam * HPI: D epression Screening: She returns to the office for her aannual physical examinationn. Is feeling generally well. Conference of blood work was done January 07, 2025 showing white count 4000 hematocrit 40.3 platelets 320 glucose 98 BUN 14 creatinine 0.87 free T4 1 0.09 TSH 0.057 total cholesterol 240 triglycerides 137 HDL 41 LDL 174. We discussed the use of a statin. Her body mass index is elevated and she is determined to lose weight. She wants to wait until she chema lost weight to see if she still needs the statin. Comprehennsive blood work including a fasting lipid profile was ordered prior to another visit in 3 months after aggressive weight loss. PHQ-9 L ittle interest or pleasure in doing things?Not at all F eeling down, depressed, or hopeless N ot at all T rouble falling or staying asleep, or sleeping too much S everal days F eeling tired or having little energy S everal days P oor appetite or overeating N ot at all F eeling bad about yourself or that you are a failure, or have let yourself or your family down N ot at all T rouble concentrating on things, such as reading the newspaper or watching television N ot at all M oving or speaking so slowly that other people could have noticed; or the opposite, being so fidgety or restless that you have been moving around a lot more than usual N ot at all T houghts that you would be better off or of hurting yourself in some way N ot at all T otal Score 2 I nterpretation M inimal Depression C OVID-19 Screening: Questions H ave you had any new onset fever, chills, cough, congestion, sore throat, shortness of breath, muscle aches? N o S CHEMA Questions: SDOH Questions I n the past year have you been worried about losing your housing? N o I n the past year have you or any family members you live with been unable to get any of the following when it was really needed? Check all that apply: N one * ROS: G eneral/Constitutional: pain R ight hip. C hills d enies. F atigue a dmits. F ever d enies. E NT: Decreased hearing d enies. R espiratory: Cough d enies. C ardiovascular: Chest pain with exertion d enies. D yspnea on exertion?denies. S hortness of breath d enies. G astrointestinal: Constipation o ccasional. D ecreased appetite d enies. D iarrhea d enies. H eartburn o ccasional. N ausea d enies. R ectal bleeding [...] for benign disease, cystoadenofibroma right ovary 2015colonoscopy, [facility], Dr. Esparza, tubular adenoma * Hospitalization/Major [...] Social History: T obacco Use: T obacco Control (Standard) T obacco use: F ormer smoker H ow long has it been since you last smoked??Greater than 10 years A dditional Findings: Tobacco non-user E x-cigarette smoker D rugs/Alcohol: D rugs H ave you used drugs other than those for medical reasons in the past 12 months? N o D rug/Alcohol: A ISRAEL-C (Standard) D id you have a drink containing alcohol in the past year? Y es H ow often did you have six or more drinks on one occasion in the past year? 2 to 4 times a month (2 points) H ow many drinks did you have on a typical day when you were drinking in the past year? 1 or 2 drinks (0 point) H ow often did you have a drink containing alcohol in the past year? N ever (0 point) P oints 2 I nterpretation N egative S he lives in [place], [place]. She has been to [place] for many years. They have one son, Charles, who is attending college in [place], [place]. 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 She works 34-36 hours a week. * Medications: T akingvalACYclovir HCl 1 GM Tablet TAKE 2 TABLETS BY MOUTH TWICE DAILY FOR 1 DAY Oral Lisinopril 10 MG Tablet 1 tablet Orally Once a day Medication List reviewed and reconciled with the patientTaking valACYclovir HCl 1 GM Tablet TAKE 2 TABLETS BY MOUTH TWICE DAILY FOR 1 DAY Oral Taking Lisinopril 10 MG Tablet 1 tablet Orally Once a day Medication List reviewed and reconciled with the patient * Allergies: N o Known Drug Allergyno[Allergies Verified] Objective: * Vitals: H t: 63, Wt: 169, BMI:29.93, BP: 125/78, HR: 78, Temp: 98.1, Wt-k.66. * Examination: G eneral Examination: GENERAL APPEARANCE: p leasant, well nourished, well developed, in no acute distress, calm and relaxed, overweight, woman. HEAD: a traumatic, normocephalic. EYES: e [...] sounds normal, no ascites, no organomegaly, no mass, overweight. RECTAL EXAM: n ot examined. MUSCULOSKELETAL: e xtremities unremarkable, no clubbing, cyanosis or edema. PERIPHERAL PULSES: n ormal. NEUROLOGIC: a lert and oriented, cranial nerves 2-12 grossly intact, deep tendon reflexes 2+ symmetrical, motor strength normal upper and lower extremities, sensory exam intact. PSYCH: a lert, oriented. Assessment: * Assessment: 1. M ixed hyperlipidemia - E78.2 (Primary) N otes :Her total cholesterol is 240 in the LDL is elevated at 174. We discussed using a statin medication to reduce her cardiovascular risk. We decided that she woulld try aggressively to lose weight over the next 3 months and then repeat the fasting lipid profile. She will consider a statin such as Lipitor at that time if the lipids have not reduced. 2 . O verweight - E66.3 N otes :She wants very much to lose weight. We have discussed diet and nutrition today. We made a plan to lose weight at a rate of one half of a pound per week. 3 . F ibroids - D25.9 N otes :She continues to be under the care of her outsole splicer, Dr. Orlando. 4 . O varian cyst - N83.20 N otes :She has one remaining ovary located on the Left side, which is known to have a cyst. The left ovary has been removed. She is up-to-date with gynecology and I have encouraged her to follow the directions of the outsole splicer at all times. 5 . R ight hip pain - M25.551 N otes :The pain in her right hip is mild but persistent. He will continue on current therapy. If it worsens she will be referred to orthopedics. She is currently able to work full-time and pursue all of the activities of daily life. 6 . R adiation exposure - Z77.123 N otes :There is no sign of thyroid cancer at this time. Her thyroid function test) unremarkable. 7 . A bnormal liver function - R94.5 N otes :Her liver functions have returned to almost normal. This is likely due to obesity and fat storage. They will be followed carefully. 8 . F ormer smoker - Z87.891 N otes :We made a plan to prevent relapsee in times of stress or illness. Plan: * Treatment: 2. O verweight L AB: PROFILE, FASTING (COMPREHENSIVE METABOLIC) L AB: TSH (THYROID STIMULATING HORMONE) L AB: CBC WITH AUTO DIFF L AB: Lipid Panel 3. O thers Continue valACYclovir HCl Tablet, 1 GM, TAKE 2 TABLETS BY MOUTH TWICE DAILY FOR 1 DAY, Oral; C ontinue Lisinopril Tablet, 10 MG, 1 tablet, Orally, Once a day. * Procedure Codes: * Preventive Medicine: Counseling: [...] done: Medical or Other reason not done S moking/Tobacco Use Patient counseled on the dangers of tobacco use and urged to quit. 0 02/05/2025 * Follow Up: 3 Months (Reason: OV) * Images: * Sign off status: Completed true * Provider: Corina Giraldo MD Date: 0 01/08/2025 Generated for Shaun sauer/Lena/Praful on: 12/04/2024 07:31 AM EST History and Physical Notes * HPI (History of Present Illness) Category Sub-Category Detail Notes Depression Screening PHQ-9 Little inte rest or pleasure in doing things: Not at all Feeling down, depressed, or hopeless: No t at all Trouble falling or staying asleep, or sl eeping too much: Several days Feeling tired or having little energy: S everal days Poor appetite or overeating: Not at all Feeling bad about yourself o r that you are a failure, or have let yourself or your family down: Not at all Trouble concentrating on thi ngs, such as reading the newspaper or watching television: Not at all Moving or speaking so slowly that other people could have noticed; or the opposite, being so fidgety or restless that you have been moving around a lot more than usual: Not at all Thoughts that you would be b jose g off or of hurting yourself in some way: Not at all Total Score: 2 Interpretation: Minimal Depression COVID-19 Screening Questions Have you had any new onset fever, chills, cough, congestion, sore throat, shortness of breath, muscle aches?: No SDOH Questions SDOH Questions In the past year have you been worried about losing your housing?: No In the past year have you or any family members you live with been unable to get any of the following when it was really needed? Check all that apply:: None Examination Category Sub-Category Detail Notes General Examination GENERAL APPEARANCE: pleasant , well nourished, well developed, in no acute distress, calm and relaxed, overweight, woman HEAD: atraumatic, normocep halic EYES: eomi, perrla, anicte sue, conjugate EARS: normal NOSE: septum intact NECK/THYROID: no jugular venous di stention, no carotid bruit, thyroid normal HEART: no clicks, gallops, murmurs, or rubs, regular rhythm, S1, S2 normal, no s3, or vascular bruits LUNGS: clear to auscultatio n ABDOMEN: bowel sounds normal, no ascites, no organomegaly, no mass, overweight NEUROLOGIC: alert and oriented, cranial nerves [...]
--- OUTSIDE RECORDS SUMMARY | 2025-04-09 12:30 | XMS_ITS ---
Author Organization Carmine Giraldo III, MD Address [address] [place] [address] Care Team Providers Care Drum Maker Name Role Phone Dr. Carmine Giraldo III [...] Additional Findings: Tobacco non-user Ex-cigaret te smoker Encounters Encounter Location Date Provider Diagnosis Carmine Giraldo III, MD [address] [place] [address] [address] [place] [address] 04/09/2025 Carmine Giraldo Plan Of Treatment Medication Medication Name Sig Start Date Stop Date Notes Lisinopril 10 MG 1 tablet Orally Once a day 06/20/2024 Next Appt Details Provider Name:Carmine Giraldo , 01/10/2026 04:00:00 PM, [address] [place] [address] [address], [place], [address], Progress Notes * Clair QUINTERODOB: 8 (55 yo F)Acc No.[id number]:04/09/2025 Progress Notes Patient: Clair HERNÁNDEZ Provider: Corina Giraldo MD :1970 A ge:54 Y S ex:Female Date:04/09/2025 Address:[address] [place], [place] [id number] Subjective: * Chief Complaints: * 1 . Follow up. * HPI: C OVID-19 Screening: Questions H ave you had any new onset fever, chills, cough, congestion, sore throat, shortness of breath, muscle aches? N o * ROS: G eneral/Constitutional: pain [...] Uterine fibroids, Sinusitis, Labyrinthitis, Nocturnal epigastric pain, [id number], risk of thyroid cancer, exposure to radiation at [place]., Septated large right ovarian cyst, Right ovarian cyst adenofibroma, resected 2014, BRCA1 and BRCA2 negative, Hepatic cyst, Mixed hyperlipidemia. * Surgical History: a ppendectomy, age 6 , G3, P1, AB2 , right salpingo-oophorectomy for benign disease, cystoadenofibroma right ovary 2014, colonoscopy, [facility], Dr. Esparza, tubular adenoma . * Hospitalization/Major Diagno stic Procedure: D enies Past Hospitalization. * Family History: F ather: 49 yrs, kidney cancer, diagnosed with Cancer. M other: 63 yrs, liver/ovary issues/hypertension/stroke, diagnosed with HTN. C hilaj: alive. S on(s): alive 25 yrs. S ibmary: alive. 1 brother(s) , 1 sister(s) - [...] dditional Findings: Tobacco non-user E x-cigarette smoker S he lives in [place], [place]. She has been to [place] for many years. They have one son, Charles, who is attending college in [place], [place]. 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 * Medications: T aking valACYclovir HCl 1 GM Tablet TAKE 2 [...] * Provider: Corina Giraldo MD Date: 0 04/09/2025 Generated for Shaun sauer/Lena/Praful on: 12/04/2024 07:32 AM EST History and Physical Notes * HPI (History of Present Illness) Category Sub-Category Detail Notes COVID-19 Screening Questions Have you had any new onset fever, chills, cough, congestion, sore throat, shortness of breath, muscle aches?: No Examination Category Sub-Category Detail Notes General [...]
--- NOTE | ~2025-10-04 | MM_ITS ---
EXAMINATION: MM SCREENING DIGITAL BREAST TOMOSYNTHESIS, BILATERAL CLINICAL INFORMATION: Screening. Asymptomatic. COMPARISON: Mammography: Comparison is made with available priors TECHNIQUE: Digital breast mammography with tomosynthesis is performed in both the craniocaudal and mediolateral oblique views along with computer-aided detection (CAD). FINDINGS: There are scattered areas of fibroglandular density. Right marker clip. There are no significant masses, abnormal calcifications, or other abnormalities. MM/MM tomosynthesis screening BI IMPRESSION: No mammographic evidence of malignancy. ASSESSMENT: BI-RADS Category 2: Benign RECOMMENDATION: Routine annual mammography screening. 1 year F/U This examination should not preclude the clinical evaluation of a suspicious palpable abnormality. This patient's information was entered into a reminder system with a target due date for their next mammogram. Electronically signed by: Roxanne Valdovinos DO 10/07/2025 04:11 PM [facility]
--- OUTSIDE RECORDS SUMMARY | 2025-10-04 07:31 | XMS_ITS | Patient Health Record ---
Author Organization [facility] [address] Address [address] [place] [address] Reason For Referral No Information Plan Of Treatment No Information
--- OUTSIDE RECORDS SUMMARY | 2025-10-04 07:32 | XMS_ITS | Encounter Summary ---
Author Organization [facility] Address [address] [place] [address] Phone Care Team Providers Care Service Specialist Name Role Phone Pcp, Not Required Primary Care Provider Unavaila ble Encounter Details Date Type Department Care Team (Late st Contact Info) Description 08/22/2020 Transcribe Orders [facility] Phleb [address] [place] [address] System, Provider Not In, [facility] [address] [address] Personal history of exposure to potentially hazardous body fluids (Primary Dx) Social History Tobacco Use Types Packs/Day Years Used Date Smoking Tobacco: Never Assessed Comments Unknown Sex and Gender Information Value Date Recorded Sex Assigned at Not on file Legal Sex Female 9:37 PM EDT Gender Identity Not on file Sexual Orientation Not on file documented as of this encounter Plan of Treatment Not on file documented as of this encounter Results * HIV-1/2 antigen/antibody (08/22/2020 7:46 AM EDT) [facility] HIV Antibod(ies) NON-REACTI VE NON-REACTI VE [facility] HIV-1 ANTIGEN NON-REACTI VE NON-REACTI VE [facility] Blood 08/22/2020 7:46 AM EDT 08/22/2020 7:53 AM EDT us Provider Not In System PhD LAB BLOOD BKR ORDERAB LES Final Result [facility] [address] [place] [address] * Hepatitis C viral load (PCR) (08/22/2020 7:46 AM EDT) [facility] HCV RNA DETECT/QNT Undetected Undetected IU/mL [facility] Comment: (NOTE) Result in log IU/mL is Undetected. ADDITIONAL INFORMATION The quantification range of this assay is 15 to 100,000,000 IU/mL (1.18 log to 8.00 log IU/mL). Testing was performed using the siomara HCV test ([employer] with the siomara MegaBits0 System. Blood (Blood) 08/22/2020 7:4 6 AM EDT 08/22/2020 7:55 AM EDT us Provider Not In System PhD LAB BLOOD BKR ORDERAB LES Edited Result - Final Performing Organization Address [facility] Co de Phone Number [facility] [address] [place] [address] * Hepatitis B surface antigen (08/22/2020 7:46 AM EDT) HBV SURFACE ANTIGEN NON-REACTI VE NON-REACTI VE [facility] Blood 08/22/2020 7:46 AM EDT 08/22/2020 7:53 AM EDT us Provider Not In System PhD LAB BLOOD BKR ORDERAB LES Final Result Performing Organization Address [facility]/ZIP Co de Phone Number [address] [address] * Hepatitis B surface antibody (08/22/2020 7:46 AM EDT) HBV SURFACE ANTIBODY Positive [facility] Comment: Unvaccinated: Negative Vaccinated: Positive Blood 08/22/2020 7:46 AM EDT 08/22/2020 7:53 AM EDT us Provider Not In System PhD LAB BLOOD BKR ORDERAB LES Final Result Performing Organization Address [facility]/ZIP Co de Phone Number [address] [address] * Hepatitis B core antibody, total (08/22/2020 7:46 AM EDT) HEP B CORE AB, TOT NON-REACTI VE NON-REACTI VE [facility] Blood 08/22/2020 7:46 AM EDT 08/22/2020 7:53 AM EDT us Provider Not In System PhD LAB BLOOD BKR ORDERAB LES Final Result [facility] [address] [place] [address] documented in this encounter Visit Diagnoses Diagnosis Personal history of exposure to potentially hazardous body fluids- Primary Personal history of contact with and (suspected) exposure to potentially hazardous body fluids documented in this encounter Care Teams Service Specialist Relationship Specialty Start Date End Date Pcp, Not Required [address] [place] [address] PCP - General 08/22/20 documented as of this encounter Additional Source Comments The information contained in this document represents components of the legal health record. It is not the complete legal health record.[facility]
--- OUTSIDE RECORDS SUMMARY | 2025-10-04 07:32 | XMS_ITS | Patient Health Record ---
Author Organization [employer] [facility] Address [address] [facility] [address] [place] [address] Care Team Providers Care Logistics Manager Name Role Phone MARIBETH KING MD Primary Care Provider Unavailab rosette ValenzuelaHellen Unavailable [phone] Allergies No Known Allergies Results Component Value Reference Range Notes PDF Report Reviewed date:07/11/2025 10:42:44 AM Interpretation: Performing Lab:[facility], [address], [address], [place], Phone - [phone], Director - [facility] Notes/Report: Clinical Information:CERV/VAG [id number] Dates / Results....06/21/2022 NIL NEG HPV Other..............Post Menopausal No. of containers..01 ThinPrep Vial [id number] IGP No Culture 30 Plus Reviewed date:07/11/2025 10:44:03 AM Interpretation: Performing Lab:[facility], [address], [address], [place], Phone - [phone], Director - [facility] Notes/Report: Clinical Information:CERV/VAG [id number] Dates / Results....06/21/2022 NIL NEG HPV Other..............Post Menopausal No. of containers..01 ThinPrep Vial DIAGNOSIS: NEGATIVE FOR INTRAEPITHELIAL LESION OR MALIGNANCY. THIS SPECIMEN WAS RESCREENED PART OF OUR INTERVENTIONAL NEURORADIOLOGIST PROGRAM. Specimen adequacy: Satisfactory for evaluation. Endocervical and/or squamous metaplastic cells (endocervical component) are present. Clinician provided ICD10: Z01.419 Z11.51 Performed by: Avis Ruggiero ytologist (ASC) QC reviewed by: Clifford joshi, Case Management Social Worker (ASC) . . Note: The Pap smear is a screening test designed to aid in the detection of premalignant and malignant conditions of the uterine cervix. It is not a diagnostic procedure and should not be used as the sole means of detecting cervical cancer. Both false-positive and false-negative reports do occur. . Test Methodology: This liquid based ThinPrep(R) pap test was screened with the use of an image guided system. HPV Aptima Negative Negative This nucleic acid amplification test detects fourteen high-risk HPV types (16,18,31,33,35,39,45,51,52,56,5 8,59,66,68) without differentiation. HPV Genotype Reflex Criteria not met, HPV Genotype not performed. Reason For Referral No Information Medications Medication SIG (Take, Route, Frequency, Duration) Notes Start Date End Date Status Lisinopril 10 MG Oral; Duration: 30 Days Active Prometrium 100 MG 1 capsule at bedtime Orally Once a day; Duration: 90 days 07/02/2024 Active Estradiol 0.0375 MG/24HR 1 patch to skin Transdermal Two times a Week; Duration: 90 days 07/02/2024 Active valACYclovir HCl 1 GM 1 tablet Orally On ce a day; Duration: 30 days 07/02/2024 Active Valtrex 1 GM 2 Orally TWICE DAILY ; Duration: 1 days 01/11/2022 Active Estring 7.5 MCG/24HR 1 ring Vaginal EVER Y 3 MONTHS; Duration: 90 days 07/08/2025 Active Multi-Vitamin - 1 tablet Orally Once a day; Duration: 30 day(s) Active Social History Tobacco Use: Social History Observation Description Date Details (start date - stop date) Former Smoker NA - NA AUDIT-C (Standard) Question Answer Notes Did you have a drink contain ing alcohol in the past year? Yes How often did you have six o r more drinks on one occasion in the past year? Never (0 point) How many drinks did you have on a typical day when you were drinking in the past year? 1 or 2 drinks (0 point) How often did you have a dri nk containing alcohol in the past year? 2 to 3 times a week (3 points) Points 3 Interpretation Positive Tobacco Control (Standard) Question Answer Notes Tobacco use: Former smoker Problems Problem Type SNOMED Code ICD Code Onset Dates Problem Status W/U Status Risk Notes Problem Excessive and frequent menstruation (863316800) Excessive and frequent menstruation with regular cycle (N92.0) Active confirmed Problem Postmenopausal atrophic vaginitis (38790466) Postmenopausal atrophic vaginitis (N95.2) Active confirmed Problem Postmenopausal bleeding (69484324) Postmenopausal bleeding (N95.0) Active confirmed Problem Herpes simplex viral infection (50278241) Herpesviral infection, unspecified (B00.9) Active confirmed Problem Intermenstrual bleeding - irregular (82490124) Excessive and frequent menstruation with irregular cycle (N92.1) Active confirmed Problem Irregular Menstruation (51165369) Other specified irregular menstruation (N92.5) Active confirmed Problem Abnormal vaginal bleeding (709275967) Other specified abnormal uterine and vaginal bleeding (N93.8) Active confirmed Problem Unspecified menopausal and perimenopausal disorder (N95.9) Active confirmed Problem Menopause (385934149) Menopausal and female climacteric states (N95.1) Active confirmed Problem Female genital organ symptoms (547751628) Other specified symptom associated with female genital organs (625.8) Active confirmed Major Problem Gynecological examination normal (226348380206846) Routine gynecological examination (V72.31) Active confirmed Major Vital Signs Temperature 97.2 degrees Fahrenheit 07/08/2025 Blood pressure diastolic 82 mm Hg 07/08/2025 Height 62.75 in 07/08/2025 Blood pressure systolic 126 mm Hg 07/08/2025 Weight 161 lbs 07/08/2025 BMI 28.74 kg/m2 07/08/2025 Encounters Encounter Location Date Provider Diagnosis [address] [address] 07/08/2025 Hellen Valenzuela Encounter for gynecological examination (general) (routine) without abnormal findings Z01.419 ; Encounter for screening for human papillomavirus (HPV) Z11.51 ; Encounter for screening mammogram for malignant neoplasm of breast Z12.31 ; Hormone replacement therapy Z79.890 and Postmenopausal atrophic vaginitis N95.2 Assessments Encounter Date Diagnosis (ICD Code) Assessment Notes Treatment Notes Treatment Clinical Notes Section Notes 07/08/2025 Encounter for gynecological examination (general) (routine) without abnormal findings (ICD-10 - Z01.419) PAP TEST WAS PERFORMED. 07/08/2025 Encounter for screening for human papillomavirus (HPV) (ICD-10 - Z11.51) HPV TYPING WAS ORDERED WITH PAP SMEAR. 07/08/2025 Encounter for screening mammogram for malignant neoplasm of breast (ICD-10 - Z12.31) REGULAR MAMMOGRAMS AND SBE'S WERE RECOMMENDED. 07/08/2025 Hormone replacement therapy (ICD-10 - Z79.890) DISCUSSED BENEFITS AND RISKS OF HRT. PAT WANTS TO RESTART. SHE SAYS SHE HAS FELT SLIGHTLY DEPRESSED AND HAS INSOMNIA AND MOOD SWINGS. SHE HAS NO CONTRAINDICATIONS AND ACCEPTS RISKS. SHE WILL CALL FOR REFILLS. 07/08/2025 Postmenopausal atrophic vaginitis (ICD-10 - N95.2) DISCUSSED VAGINAL ATROPHY AND TX OPTIONS. SHE HAD HEARD ABOUT ESTRING AND WANTS TO TRY THIS. BENEFITS AND RISKS OF ESTRING WERE DISCUSSED. SHE HAS NO CONTRAINDICATIONS AND ACCEPTS RISKS. WILL SEND RX AND ADVISED THE PAT TO RETURN SO I CAN TEACH HER HOW TO INSERT AND REMOVE. Plan Of Treatment Pending Test Test Name Order Date Ultrasound : Breasts, bilateral 11/19/19 17 Sonohysterogram 02/09/2023 CEA 01/17/2015 Test, Urine 01/07/2015 Urinalysis 11/13/2015 Ultrasound : Pelvic 02/13/2016 Ultrasound : Pelvic 04/21/2017 Ultrasound : Retroperitoneal 02/13/2016 Ultrasound : Retroperitoneal 03/30/2021 Ultrasound : Retroperitoneal 01/11/2022 ENDOMETRIAL BX 02/09/2023 CA 125 01/17/2015 HCG 01/07/2015 HCG 01/17/2015 COMPLETE URINALYSIS 11/29/2017 THIN PREP,HPV,BRIANA IF HPV+ (>29YR)(DIAG) 02/02/2019 MM Digital Mammo Screening 05/14/2020 MM Digital Mammo Screening 02/02/2019 MM Digital Mammo Screening 11/19/2016 MM Digital Mammo Screening 06/01/2021 MM Digital Mammo Screening 06/21/2022 MM Digital Mammo Screening 06/27/2023 MM Digital Mammo Screening 07/02/2024 MM Digital Mammo Screening 07/08/2025 PELVIC ULTRASOUND W/TRANSVAGINAL 024 PELVIC ULTRASOUND W/TRANSVAGINAL 022 PELVIC ULTRASOUND W/TRANSVAGINAL 021 Next Appt Details Provider Name:Hellen alvares, 07/16/2026 03:00:00 PM, [address], [address], [place], [address], Insurance Providers Payer Name Payer Address Payer Phone Subscriber Number Group Number Insured Name Patient Relationship to Insured Coverage Start Date Coverage End Date [employer] [address] [place] [address] [id number] LUCIA ALCARAZ Spouse - patient is the spouse of the insured Medical (General) History Medical History History ICD Code Other specified conditions a ssociated with female genital organs and menstrual cycle N94.89 Other specified abnormal uterine and vag inal bleeding N93.8 Right lower quadrant pain R10.31 Other ovarian cysts N83.29 Pelvic and perineal pain R10.2 Inconclusive mammogram R92.2 Herpesviral infection, unspecified B00.9 Herpesviral vesicular dermatitis B00.1 Leiomyoma of uterus, unspecified D25.9 Excessive and frequent menstruation with regular cycle N92.0 Other specified abnormal uterine and vag inal bleeding N93.8 Postmenopausal atrophic vaginitis N95.2 Postmenopausal bleeding N95.0 Unspecified menopausal and perimenopausa l disorder N95.9 Menopausal and female climacteric states N95.1 Surgical History Surgery Date(Month/Year) Appendectomy Rt Salpingo-Oophorectomy 02/2015 Endometrial Biopsy 05/2017 Hospitalization History Reason Date(Month/Year) See Surgical Hx 1 Vaginal Delivery
--- OUTSIDE RECORDS SUMMARY | 2025-10-04 07:32 | XMS_ITS | Patient Health Record ---
Author Organization [facility] Address [address] [place] [address] Care Team Providers Care Fruit Dumper Name Role Phone nEzo MONROY, Carmine Primary Care Provider Abiodun Beltran Jr Unavailable Allergies No Known Allergies Reason For Referral No Information Medications Medication SIG (Take, Route, Frequency, Duration) Notes Start Date End Date Status MiraLax (colon prep) 17 GM/SCOOP Powder mixed with Gatorade or Crystal Light Orally begin at 5:00 p.m. the day before the procedure; Duration: 1 day 05/03/2024 Active Valtrex 500 MG Tablet 1 tablet Orally prn Active Immunizations Vaccine Route Administration Date Status Comme nts Influenza Unknown 11/17/2018 Refused Influenza Unknown 05/03/2024 Refused Social History Tobacco Use: Social History Observation Description Date Details (start date - stop date) Former Smoker NA - NA Social History Drugs/Alcohol: Social Info Question Answer Notes Alcohol Screen Did you have a drink containing alcohol in the past year? Yes How often did you have a drink containing alcohol in the past year? 2 to 4 times a month (2 points) How many drinks did you have on a typical day when you were drinking in the past year? 1 or 2 drinks (0 point) How often did you have 6 or more drinks on one occasion in the past year? Never (0 point) Points 2 Interpretation Negative Tobacco Use: Social Info Question Answer Notes Tobacco Use/Smoking Patient is a former smoker How long has it been since you last smoked? > 10 years Additional Details Category Social Info Options Details Miscellaneous: Marital status: Occupation: [employer] Problems Problem Type SNOMED Code ICD Code Onset Dates Problem Status W/U Status Risk Notes Problem Colon cancer screening (198869247) Colon cancer screening (Z12.11) Active confirmed Problem Pre-procedure evaluation check (867942970) Encounter for other preprocedural examination (Z01.818) Active confirmed Problem Left upper quadrant pain (709709323) Left upper quadrant pain (R10.12) Active confirmed Problem Essential hypertension (06097932) Hypertension, unspecified type (I10) Active confirmed Encounters Encounter Location Date Provider Diagnosis [facility] [address] [place] [address] 10/26/2024 Abiodun Villafana Jr Plan Of Treatment Future Test Test Name Order Date COLONOSCOPY 11/17/2018 COLONOSCOPY 05/03/2024 Insurance Providers Payer Name Payer Address Payer Phone Subscriber Number Group Number Insured Name Patient Relationship to Insured Coverage Start Date Coverage End Date [address] [place] [address] [phone] [id number] JODY ALCARAZ Self - patient is the insured Medical (General) History Medical History History ICD Code Oral HSV infection Hepatic cyst Uterine fibroids Hyperlipidemia Colonoscopy 03/02, tubular adenoma, five- year followup Surgical History Surgery Date(Month/Year) oopherectomy 02/2015 appendectomy 1976
--- OUTSIDE RECORDS SUMMARY | 2025-10-04 07:33 | XMS_ITS | Clinical Summary ---
Author Organization [facility] Address [address] [address] Phone Care Team Providers Care Heel Nail Rasper Name Role Phone Pcp, Not Required Primary Care Provider Unavaila ble Social History Tobacco Use Types Packs/Day Years Used Date Smoking Tobacco: Never Assessed Education Answer Date Recorded Are you interested in more education? Not on ilia e 03/11/2023 Are you concerned about learning? Not on file 03/11/2023 No 03/11/2023 No 03/11/2023 Digital Access Answer Date Recorded No 04/11/2023 No 04/11/2023 No 04/11/2023 Reliable internet access at home? Not on file 04/11/2023 Device with a working camera? Not on file Comments Unknown Sex and Gender Information Value Date Recorded Sex Assigned at Not on file Legal Sex Female 9:37 PM EDT Gender Identity Not on file Sexual Orientation Not on file Plan of Treatment Not on file Medical Devices Not on file Insurance CIGNA LOCAL PLUS IN/NON CONTRACT PLANS CIGNA LOCAL PLUS IN/NON CONTRACT PLANS C[employer]NA LOCAL PLUS IN/NON CONTRACT PLANS C[employer]NA LOCAL PLUS IN/NON CONTRACT PLANS CIGNA LOCAL PLUS IN/NON CONTRACT PLANS C[employer]NA LOCAL PLUS IN/NON CONTRACT PLANS CIGNA LOCAL PLUS IN/NON CONTRACT PLANS C[employer]NA LOCAL PLUS IN/NON CONTRACT PLANS Member Subscriber Plan / Payer (Ef fective 2013-Present) Name:Clair Quintero Relation to Subscriber:Self Name:Clair Quintero Payer ID:[id number] (NAIC) Type:HMO Address: [facility] [id number] [place] [id number] CIGNA LOCAL PLUS IN/NON CONTRACT PLANS [employer] Care Teams Heel Nail Rasper Relationship Specialty Start Date End Date Pcp, Not Required [address] [place] [address] PCP - General 08/22/20 Additional Source Comments The information contained in this document represents components of the legal health record. It is not the complete legal health record.[facility]
--- OUTSIDE RECORDS SUMMARY | 2025-10-04 07:33 | XMS_ITS | Patient Health Record ---
Author Organization Carmine Giraldo III, MD Address [address] [place] [place] [address] Care Team Providers Care Ash Collector Name Role Phone Dr. Carmine Giraldo III Primary Care Provider Allergies Allergen (clinical drug ingredient) Drug/Non Drug Allergy documented on EMR Reaction Allergy Type Onset Date Status No Known Drug Allergy Unknown Drug Allergy Active Reason For Referral No Information Medications Medication [...] Problem Status W/U Status Risk Notes Problem 8670739 Former smoker (Z87.891) Active confirmed We made a plan to prevent relapsee in times of stress or illness. Problem 105963339 Overweight (E66.3) Active confirmed She wants very much to lose weight. We have discussed diet and nutrition today. We made a plan to lose weight at a rate of one half of a pound per week. Problem 962309308313539 Right hip pain (M25.551) Active confirmed The pain in her right hip is mild but persistent. He will continue on current therapy. If it worsens she will be referred to orthopedics. She is currently able to work full-time and pursue all of the activities of daily life. Problem 221980013 Mixed hyperlipidemia (E78.2) Active confirmed Her total [...] if the lipids have not reduced. 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 I recommended a low cholesterol weight reduction low-sodium diet. Problem 86933344 Ovarian cyst (N83.20) Active confirmed She has one remaining ovary located on the Left side, which is known to have a cyst. The left ovary has been removed. She is up-to-date with gynecology and I have encouraged her to follow the directions of the dairy cattle farm manager at all times. Problem 62089518 Essential hypertension (I10) Active confirmed She was given a prescription for 10 mg daily of lisinopril. She will follow up in 21 days. She will continue to check her blood pressure at home. Problem Carpal tunnel syndrome (85746356) Carpal tunnel syndrome (G56.00) Active confirmed Problem 084310855 Right upper quadrant abdominal pain (R10.11) Active confirmed An actionable cause of this has not been found. She appears to be medically stable and will be carefully observed at this time. Problem 148954761 Abnormal mammogram (R92.8) Active confirmed Her last mammogram was August 2019 and was read as benign with a recommendation of annual studies. The radiologist calculated a Perri model lifetime risk of breast cancer of 17% Problem 00012918 Fibroids (D25.9) Active confirmed She continues to be under the care of her dairy cattle farm manager, Dr. Orlando. Problem 792320624 Radiation exposure (Z77.123) Active confirmed There is no sign of thyroid cancer at this time. Her thyroid function test) unremarkable. Problem Hepatic cyst (82688969) Hepatic cyst (K76.89) Active confirmed The cyst in her liver on an ultrasound, March 11, 2023 measured 1.5 x 1.4 x 1.4 cm. In September 2019. It measured 1.6 x 1.2 x 1.5. No intervention is required. Problem Carpal tunnel syndrome (33619620) Carpal tunnel syndrome, bilateral (G56.03) Active confirmed Problem 99492048 Abnormal liver function (R94.5) Active confirmed Her [...] Date Provider Diagnosis Carmine Giraldo III, MD [address] [place] [address] DR AVLARADO, ISABELLA [address] 01/08/2025 Carmine Giraldo Mixed hyperlipidemia E78.2 ; Overweight E66.3 ; Fibroids D25.9 ; Ovarian cyst N83.20 ; Right hip pain M25.551 ; Radiation exposure Z77.123 ; Abnormal liver function R94.5 and Former smoker Z87.891 Carmine Giraldo III, MD [address] [place] [address] DR TOUSSAINTEWELINAMATHEUS, ISABELLA [address] 12/25/2024 Carmine Giraldo Mixed hyperlipidemia E78.2 ; Overweight E66.3 and Radiation exposure Z77.123 Assessments Encounter Date Diagnosis (ICD Code) Assessment Notes Treat ment Notes Treatment Clinical Notes 01/08/2025 Overweight (ICD-10 - E66.3) She wants [...] time if the lipids have not reduced. 12/25/2024 Mixed hyperlipidemia (ICD-10 - E78.2) 01/08/2025 Fibroids (ICD-10 - D25.9) She continues to be under the care of her dairy cattle farm manager, Dr. Orlando. 12/25/2024 Overweight (ICD-10 - E66.3) 01/08/2025 Ovarian cyst (ICD-10 - N83.20) She has one remaining ovary located on the Left side, which is known to have a cyst. The left ovary has been removed. She is up-to-date with gynecology and I have encouraged her to follow the directions of the dairy cattle farm manager at all times. 12/25/2024 Radiation exposure (ICD-10 - Z77.123) 01/08/2025 Right hip pain (ICD-10 - M25.551) [...] ELECTROLYTES 09/13/2022 PROFILE, FASTING (COMPREHENSIVE METABOLI C) 06/13/2023 PROFILE, [...] PROFILE, FASTING (COMPREHENSIVE METABOLI C) 12/25/2024 PROFILE, FASTING (COMPREHENSIVE METABOLI C) 09/17/2019 PROFILE, RANDOM (COMPREHENSIVE METABOLIC ) 03/26/2019 PROFILE, RANDOM (COMPREHENSIVE METABOLIC ) 06/26/2021 PROFILE, RANDOM (COMPREHENSIVE METABOLIC ) 01/04/2024 AMYLASE 08/13/2022 LIPASE 08/13/2022 LIPID PANEL 09/17/2019 LIPID PANEL 08/13/2022 LIPID PANEL 06/13/2023 LIPID PANEL 07/12/2018 LIPID PANEL 12/29/2022 LIPID PANEL 12/16/2022 LIPID PANEL 12/19/2019 LIPID PANEL 09/15/2022 LIPID PANEL 09/10/2019 LIPID PANEL 05/24/2018 LIPID PANEL 08/13/2020 LIPID PANEL 09/13/2022 GGT 01/04/2024 GGT 06/13/2023 GGT 12/29/2022 LDH 06/26/2021 FREE T4 (FT4) 05/24/2018 FREE T4 (FT4) 12/16/2022 FREE T4 (FT4) 09/10/2019 TSH (THYROID STIMULATING HORMONE) 2018 TSH (THYROID STIMULATING HORMONE) 2017 TSH (THYROID STIMULATING HORMONE) 2024 TSH (THYROID STIMULATING HORMONE) 2022 TSH (THYROID STIMULATING HORMONE) 2024 CBC w DIFF 12/16/2022 CBC w DIFF 06/26/2021 CBC w DIFF 08/13/2020 CBC w DIFF 12/25/2024 CBC w DIFF 01/04/2024 CBC w DIFF 09/10/2019 CBC w DIFF 09/17/2019 CBC w DIFF 08/13/2022 CBC w DIFF 05/24/2018 CBC w DIFF 06/13/2023 CBC w DIFF 03/26/2019 CBC w DIFF 12/29/2022 CBC w DIFF 09/15/2022 SED RATE (ESR) 12/16/2022 SED RATE (ESR) 06/26/2021 SED RATE (ESR) 08/13/2020 SED RATE (ESR) 08/13/2022 SED RATE (ESR) 12/29/2022 HEPATITIS A,B,C PROFILE 08/03/2017 HIV AG/AB 08/03/2017 CA 125 03/26/2019 ALYX-RAMIRES VIRUS PROFILE (EBV) 021 MAMMOGRAM DIGITAL BILATERAL SCREEN 05/31 VITAMIN D 25-OH TOTAL 09/15/2022 CBC WITH AUTO DIFF 10/28/2023 CBC WITH AUTO DIFF 01/08/2025 Lipid Panel 01/08/2025 Lipid Panel 12/25/2024 Lipid Panel 09/12/2023 Lipid Panel 10/28/2023 Free T4 (Free Thyroxine) 12/25/2024 XR hand LT min 3V 01/13/2024 XR hand RT min 3V 01/13/2024 NE electromyogram (EMG) 01/13/2024 Next Appt Details Provider Name:Carmine Giraldo , 01/10/2026 04:00:00 PM, [address] [facility] [facility] [facility], [place], [address], Insurance Providers Payer Name Payer Address Payer Phone Subscriber Number Group Number Insured Name Patient Relationship to Insured Coverage Start Date Coverage End Date KULWANT Valentine [id number] NIR KELLEY [id number] Clair Quintero Self - patient is the insured Medical (General) History Medical History History ICD Code appendicitis age 6 uterine fibroids sinusitis labyrinthitis nocturnal epigastric pain [id number] risk of thyroid cancer, exposure to radi ation at [place]. septated large right ovarian cyst right ovarian cyst adenofibroma, resecte d 2014 BRCA1 and BRCA2 negative hepatic cyst Mixed hyperlipidemia Surgical History Surgery Date(Month/Year) colonoscopy, [facility], Dr. Esparza, tubular adenoma right salpingo-oophorectomy for benign disease, cystoadenofibroma right ovary 2014 G3, P1, AB2 appendectomy, age 6
== END 2025-10-04 07:28 | disposition home or self-care (01) ==
LOC: HO.MAMMO 07:27
PROVIDERS: PCP Internal Medicine Medical Oncology; Visit Provider Internal Medicine Medical Oncology
DX: Z12.31 Encounter for screening mammogram for malignant neoplasm of breast (principal)
CPT/HCPCS: 77063; 77067

== ENCOUNTER → 2025-10-04 07:30 | Outpatient (BNV) | payer OTHER, SELFPAY | PROVIDERS: PCP Internal Medicine Medical Oncology; Visit Provider Internal Medicine | DX: Z12.31 Encounter for screening mammogram for malignant neoplasm of breast (principal) | CPT/HCPCS: 77063; 77067 ==

== ENCOUNTER 2025-10-15 14:28 | Outpatient (AMB) | payer OTHER, SELFPAY ==
--- NOTE | 2025-10-15 14:37 | MHC.OFFVIS ---
Vital Signs 10/15/25 14:42 Height 5 ft 3 in Weight 163 lb BMI 28.9 Intake Visit Reasons: 1yr breast exam Intake Note: Patient is seen in office for 6 month follow up visit, breast exam. Pt c/o: denies any changes Maintenance Data Analyst Required: No Optics Technical Officer: Optics Technical Officer Present Accompanied by: Self / Same As Patient Allergies pollen extracts Allergy (Mild, Verified 10/15/25 14:43) Nasal congestion HPI Comments Details: 55-year-old female patient, former patient of Dr. Eaton and Dr. Jones, determined to be high risk for breast cancer due to her strong family history for both breast and ovarian cancer. Her mother developed ovarian cancer in her early 50s and 2 maternal aunts also developed ovarian cancer in the 50s and 60s. The 2 aunts also developed breast cancer, also in their 50s and 60s. Her mother and 2 aunts have subsequently . The patient's sister was found to have pancreatic cancer at the age of 46 and subsequently underwent surgery. She is alive and well currently. Patient's father developed a kidney cancer at the age of 49. Patient is 3 para 1, with 2 miscarriages. Her son was born when she was 18 years old and she reports breast-feeding. Menarche was at the age of 12. Her last menstrual period was May,, and she reports her menstrual cycles are irregular. She denies Ashkenazi Adventist heritage, tobacco use but does report radiation exposure from [place]. She grew up in [facility] and lived near the nuclear fall out of [place], as were her family members with cancer. The genetic testing revealed no clinically significant genetic mutations and 1 variant of unknown significance. Her breast cancer risk score was low at 5.4%, well below the 20% threshold. Her last mammogram was performed on 10/04/2025 revealed no mammographic evidence of malignancy (BI-RADS 2). She is scheduled for a routine annual mammogram on 10/10/2026. She reports some pain in the left breast at the upper outer quadrant denies any history of trauma. [facility] Medical History Fatty liver HTN (hypertension) Hepatic cyst Uterine fibroid Hyperlipidemia Surgical History H/O colonoscopy History of right oophorectomy History of appendectomy Family History Maternal Aunt Breast cancer Ovarian cancer Maternal Aunt Breast cancer Sister Pancreatic cancer Father Cancer of kidney Mother Ovarian cancer Social History Household Members: Spouse Alcohol intake: current Alcohol intake frequency: holidays/special occasions only Alcohol type: wine Patient Tobacco Use Status: Former Tobacco user Tobacco use type: Cigarette Review of Systems Const All systems reviewed & are unremarkable except as noted in HPI and below Physical Exam Const General: healthy appearing and Physically active Nutritional Appearance: well nourished Orientation/consciousness: patient oriented x3 Limitations: no limitations Neck Neck: Yes no lymphadenopathy Lymphatic: no lymphadenopathy noted Chest Other: Left breast: No skin change, no nipple retraction, no nipple discharge, no palpable mass, no enlarged lymph nodes. Right breast: No skin change, no nipple retraction, no nipple discharge, no palpable mass, no enlarged lymph nodes Resp Effort & Inspection: normal respiratory effort, no audible wheezes, no cough and no respiratory distress Skin General skin exam: no rashes or lesions noted Neuro General: patient oriented x3 Extrem General: Yes no clubbing, cyanosis or edema Psych Appearance: grossly normal Affect: normal affect Thought process: Normal thought process present Assessment & Plan Assessment & Plan (1) Family history of breast cancer: Code(s): Z80.3 - Family history of malignant neoplasm of breast Category: Medical Plan: Patient returns today for a follow-up breast examination. Previous genetic testing revealed no clinically significant genetic mutations and 1 variant of unknown significance identified. Her breast cancer risk score was calculated below the 20% threshold. Examination today revealed no suspicious findings in either breast. Her most recent mammogram of 10/04/2025 revealed no evidence of malignancy (BI-RADS 2). She is interested in pursuing a breast MRI given her strong family history which seems to be a reasonable idea. This will be requested for March 2026. I recommended she return in approximately 6 months for routine breast examination. She is welcome to call sooner for any new concerns. Coding Level of Care Code Est Pt Level 3 (25335) Complex visit Add On G2211 Diagnoses Family history of breast cancer Z80.3
[2025-10-15 14:42] VITALS: BMI 28.9
--- OUTSIDE RECORDS SUMMARY | 2025-10-15 16:27 | XMS_ITS | Encounter Summary ---
Author Organization [facility] Address [address] [facility] [address] [place] [phone] Phone Care Team Providers Care Preformer Impregnated Fabrics Name Role Phone Pcp, Not Required Primary Care Provider Unavaila ble Encounter Details Date Type Department Care Team (Late st Contact Info) Description 08/22/2020 Transcribe Orders [facility] Phleb [address] [place] [address] System, Provider Not In, PhD [facility] [address] [address] Personal history of exposure to potentially hazardous [...] * HIV-1/2 antigen/antibody (08/22/2020 7:46 AM EDT) [facility] HIV Antibod(ies) NON-REACTI VE NON-REACTI VE [facility] HIV-1 ANTIGEN NON-REACTI VE NON-REACTI VE [facility] Blood 08/22/2020 7:46 AM EDT 08/22/2020 7:53 AM EDT us Provider Not In System PhD LAB BLOOD BKR ORDERAB LES Final Result [facility] [address] [place] [address] * Hepatitis C viral load (PCR) (08/22/2020 7:46 AM EDT) [facility] HCV RNA DETECT/QNT Undetected Undetected IU/mL [facility] Comment: (NOTE) Result in log IU/mL is Undetected. ADDITIONAL INFORMATION The quantification range of this assay is 15 to 100,000,000 IU/mL (1.18 log to 8.00 log IU/mL). Testing was performed using the siomara HCV test ([employer] with the [employer] System. Blood (Blood) 08/22/2020 7:4 6 AM EDT 08/22/2020 7:55 AM EDT us Provider Not In System PhD LAB BLOOD BKR ORDERAB LES Edited Result - Final Performing Organization Address [facility] Co de Phone Number [facility] [address] [place] [address] * Hepatitis B surface antigen (08/22/2020 7:46 AM EDT) HBV SURFACE ANTIGEN NON-REACTI VE NON-REACTI VE [facility] Blood 08/22/2020 7:46 AM EDT 08/22/2020 7:53 AM EDT us Provider Not In System PhD LAB BLOOD BKR ORDERAB LES Final Result Performing Organization Address [facility]/ZIP Co de Phone Number [address] [address] * Hepatitis B surface antibody (08/22/2020 7:46 AM EDT) HBV SURFACE ANTIBODY Positive [facility] Comment: Unvaccinated: Negative Vaccinated: Positive Blood 08/22/2020 7:46 AM EDT 08/22/2020 7:53 AM EDT us Provider Not In System PhD LAB BLOOD BKR ORDERAB LES Final Result Performing Organization Address [facility]/ZIP Co de Phone Number [address] [address] * Hepatitis B core antibody, total (08/22/2020 7:46 AM EDT) HEP B CORE AB, TOT NON-REACTI VE NON-REACTI VE [facility] Blood 08/22/2020 7:46 AM EDT 08/22/2020 7:53 AM EDT us Provider Not In System PhD LAB BLOOD BKR ORDERAB LES Final Result [facility] [address] [place] [address] documented in this encounter Visit Diagnoses Diagnosis Personal history of exposure to potentially hazardous body fluids- Primary Personal history of contact with and (suspected) exposure to potentially hazardous body fluids documented in this encounter Care Teams Preformer [employer] Relationship Specialty Start Date End Date Pcp, Not Required [address] [place] [address] PCP - General 08/22/20 documented as of this encounter Additional Source Comments The information contained in this document represents components of the legal health record. It is not the complete legal health record.[facility]
--- OUTSIDE RECORDS SUMMARY | 2025-10-15 16:27 | XMS_ITS | Clinical Summary ---
Author Organization [facility] Address [address] [facility] [address] [place] [phone] Phone Care Team Providers Care Refinery Process Engineer Name Role Phone Pcp, Not Required Primary [...] Name:Clair Quintero Payer ID:[id number] (NAIC) Type:HMO Address: [facility] [id number] [place] [id number] [employer] LOCAL PLUS IN/NON CONTRACT PLANS [employer] Care Teams Refinery Process Engineer Relationship Specialty Start Date End Date Pcp, Not Required [address] [place] [id number] PCP - General 08/22/20 Additional Source Comments The information contained in this document represents components of the legal health record. It is not the complete legal health record.[facility]
== END 2025-10-15 14:55 | disposition home or self-care (01) ==
LOC: HO.HGS 14:29
PROVIDERS: PCP Internal Medicine Medical Oncology; Visit Provider Surgery
DX: Z80.3 Family history of malignant neoplasm of breast (principal)
CPT/HCPCS: 99213